=== PATIENT | male | born 1935 | race Two or more races ===

== ENCOUNTER 2019-06-03 06:20 | Inpatient (IN) ==
--- NOTE | 2019-05-08 13:33 | PAT Medication Instructions ---
Medication Instructions Date of Service May 08, 2019 Home Medications Medications amlodipine [Norvasc] 5 mg PO QAM rwpsvsuug-tqdgmhyu-tcuzvmqpoc [Stalevo 100] 1 tab PO QID enalapril maleate 20 mg PO BID finasteride 5 mg PO QAM ibuprofen [Advil] 400 mg PO Q6H PRN pramipexole [Mirapex] 0.75 mg PO QAM rasagiline [Azilect] 0.5 mg PO QAM simvastatin [Zocor] 40 mg PO Q OTHER DAY tamsulosin [Flomax] 0.4 mg PO QAM ASK your surgeon for instructions ibuprofen [Advil] 400 mg PO Q6H PRN STOP taking 2 weeks before surgery rasagiline [Azilect] 0.5 mg PO QAM (check with prescribing provider before stopping) DO NOT take the morning of surgery pramipexole [Mirapex] 0.75 mg PO QAM enalapril maleate 20 mg PO BID Take morning of surgery With a small sip of water, OTHERWISE NOTHING TO EAT OR DRINK AFTER MIDNIGHT: tamsulosin [Flomax] 0.4 mg PO QAM finasteride 5 mg PO QAM szncwsplx-yjaxkzgz-ekabhsveva [Stalevo 100] 1 tab PO QID amlodipine [Norvasc] 5 mg PO QAM Take evening before surgery simvastatin [Zocor] 40 mg PO Q OTHER DAY enalapril maleate 20 mg PO BID oboktvnly-gfccbblx-liyzlogxrk [Stalevo 100] 1 tab PO QID Other Notes If you have any questions please call us at [phone] or [phone] or [phone] or [phone]
--- NOTE | 2019-05-11 10:11 | Anesthesiology Consultation ---
Date of Service May 11, 2019 Assessment & Plan (1) Encounter for pre-operative examination: Chart Review Chart Review: Acceptable Risk for Surgery and Patient seen in Pre Admission Testing Seen by PCP 05/04/2019=" At this time he is stable from a cardiopulmonary standpoint. At this time there is no contraindication to surgery. Parkinson's disease has been stable." He is to continue present meds. He was encouraged to call his neurologist to find out instructions on Stalevo, Mirapex, and Azilect for surgery. (Med instructions were given per PAT guidelines but patient was instructed to check with neurologist before stopping meds to ensure neurologist approves of neuro related med instructions) Pt [place]- wears bilateral hearing aids- pt concerned when hearing aids are taken out for surgery - may need to speak loudly to patient Preop labs show thrombocytopenia- chronic and stable for patient. Surgeon's office was made aware. Will leave to surgeon/anesthesiologist discretion if re peat lab is needed in the AM on DOS. Teaching & Discussion Pre-Anesthesia Teaching/Discussion Notes: Instructed NPO after midnight before surgery,except medications with 15 cc of water. Medication instructions provided according to the PAT guidelines. History Surgery Operation Date: 06/03/19 10:45 Proposed Procedures p Right Total Knee Arthroplasty - Javier Alonzo MD Height/Weight Height: 5 ft 7 in Weight: 86.9 kg Allergies Allergy/AdvReac Type Severity Reaction Status Date / Time No Known Allergies Allergy Verified 05/05/19 08:34 Medications Home Medications Medication Instructions Recorded Confirmed Last Taken amlodipine [Norvasc] 5 mg PO QAM 05/05/19 05/05/19 Unknown oxjlcpclm-iyqhnrva-npnyyspicf 1 tab PO QID 05/05/19 05/05/19 Unknown [Stalevo 100] enalapril maleate 20 mg PO BID 05/05/19 05/05/19 Unknown finasteride 5 mg PO QAM 05/05/19 05/05/19 Unknown ibuprofen [Advil] 400 mg PO Q6H PRN 05/05/19 05/05/19 Unknown pramipexole [Mirapex] 0.75 mg PO QAM 05/05/19 05/05/19 Unknown rasagiline [Azilect] 0.5 mg PO QAM 05/05/19 05/05/19 Unknown simvastatin [Zocor] 40 mg PO Q OTHER DAY 05/05/19 05/05/19 Unknown tamsulosin [Flomax] 0.4 mg PO QAM 05/05/19 05/05/19 Unknown Past Medical History Medical History (Updated 05/12/19 @ 11:29 by Zhanna Sinha PA-C) BPH (benign prostatic hyperplasia) Constipation Stable - takes OCT stool softner PRN Hearing deficit [place] HTN (hypertension) Hyperlipemia Parkinson disease Stable- tremor, mild rigidity, balance issues- Follows with neurology = [facility] Thrombocytopenia CHRONIC- DOES NOT FOLLOW WITH HEME - RECORDS SHOW PLATELETS IN LOW 90S Urinary incontinence, urge Exercise / Class Metabolic Activity II 4-5 Yardwork/Stairs/Walk up hill (one flight of stairs- no chest pain or SOB ) Past Family History Family History Other No family history of adverse response to anesthesia Past Surgical History Surgical History History of appendectomy History of bursectomy RT KNEE History of colon resection to r/o CA; benign History of colonoscopy History of lumbar surgery Slow to wake up after anesthesia One episode- only occurred after colon resection- slow to wake - no ICU stay or prolonged intubation Past Anesthesia History No Hx of Anesthesia Complications (with exception to slow to wake x 1) and No Family Hx of Anesthesia Complications History of PONV No Hx of PONV and No Hx of Motion Sickness Social History Smoking Status: Never smoker Do You Dip or Chew Tobacco: No Hx Alcohol Use: Yes Alcohol type: wine alcohol intake frequency: a few times a month Hx Substance Use: No substance use type: does not use Review of Systems Patient denies chest pain, shortness of breath, dyspnea on exertion, reflux, cough, wheezing, palpitations. Mild snoring laying on back- no apnea. No hx of seizures, stroke, GA. No hx of blood clots or blood transfusions Physical Exam Vital Signs VITALS BP 126/75 P 61 TEMP 97.9 SP02 98% RESP 20 Constitutional no acute distress ENMT Mouth: no TMJ clicking Thyromental Distance: > or= 3.5 Finger Breadths (3.5) Mallampati Class: II Permanent top partial plate- front teeth Bottom molars- caps and crowns Neck neck extension not limited Respiratory normal respiratory effort; no respiratory distress Auscultation: lungs clear to auscultation bilaterally; no wheezes Cardiovascular Rate/Rhythm: regular rate and regular rhythm Vessels: no carotid bruit Musculoskeletal Spine: normal cervical ROM and no pain with cervical ROM Neurologic moves all extremities Psychiatric Orientation: alert Testing Laboratory Results 05/11/19 10:23 Blood Type A Positive 05/11/19 10:23 Antibody Screen NEGATIVE 05/11/19 10:23 05/06/19 SODIUM: 145 POTASSIUM: 4.4 CHLORIDE: 107 CO2: 28 BUN: 28 CREATININE: 1.4 GLUCOSE: 96 PT: 13.8 PTT: 30 INR: 1.06 UA: Negative Electrocardiogram Date: 05/04/19 SB with first degree AV block Chest X-Ray Date: 05/06/19 Findings: + NAD
[2019-05-11 12:30] LABS: Basophils # (auto) 0.01 K/uL (0-0.2); Basophils % (auto) 0.2 %; Eosinophils # (auto) 0.08 K/uL (0-0.5); Eosinophils % (auto) 1.3 %; Hematocrit (blood only) 42.7 % (42-52); Hemoglobin 14.1 g/dL (14.0-18.0); Immature Granulocytes # (auto) 0.01 K/uL (0.00-0.02); Immature Granulocytes % (auto) 0.2 %; Lymphocytes # (auto) 1.12 K/uL (1.2-3.4); Lymphocytes % (auto) 17.9 %; Mean Corpuscular Hemoglobin 32.6 pg (25-34); Mean Corpuscular Volume 98.6 fL (80-100); Monocytes # (auto) 0.66 K/uL (0.11-0.59); Monocytes % (auto) 10.6 %; Neutrophils # (auto) 4.37 K/uL (1.4-6.5); Neutrophils % (auto) 69.8 %; Platelet Count 89 K/uL (130-400); Platelet Estimate Decreased (Normal); RDW Coefficient of Variation 13.7 % (11.5-14.5); RDW Standard Deviation 49.1 fL (36.4-46.3); Red Blood Count 4.33 M/uL (4.7-6.1); White Blood Count 6.25 K/uL (4.8-10.8)
--- NOTE | 2019-06-01 17:42 | History and Physical Report ---
DATE OF ADMISSION: 06/03/2019 CHIEF COMPLAINT: Right knee pain. HISTORY OF PRESENT ILLNESS: This 84-year-old white male presents today for evaluation of right knee pain. He has a longstanding history of right knee pain. He notes loss of motion as well as difficulty ambulating. He does have Parkinson's, which adds to his mobility difficulties. Right knee pain is worse with ambulation. It is affecting his ADLs. No numbness or tingling. He has tried conservative care measures including activity modification and oral medications without improvement. He elects to proceed with right total knee arthroplasty in hopes of improving his function. Preoperative imaging has been obtained. PAST MEDICAL HISTORY: Significant for hypertension, Parkinson's disease, elevated cholesterol, BPH, and osteoarthritis. Also, history of gout, superficial thrombophlebitis, villous adenoma. PAST SURGICAL HISTORY: Cardiac catheterization, resection of rectosigmoid in 1992, lumbar laminectomy. ALLERGIES: NKDA. FAMILY HISTORY: Significant for hypertension, diabetes, CAD; otherwise unremarkable. SOCIAL HISTORY: The patient is retired. . No tobacco use. Occasional ETOH use. CURRENT MEDICATIONS: Azilect 1 mg p.o. daily, carbidopa/entacapone/levodopa 25 mg/200 mg/100 mg p.o. q.i.d., enalapril 20 mg p.o. b.i.d., finasteride 5 mg p.o. daily, pramipexole 0.75 mg p.o. daily, simvastatin 40 mg p.o. every other day, tamsulosin 0.4 mg p.o. daily. REVIEW OF SYSTEMS: A total of 10 systems are reviewed and are significant only for the above-stated conditions. PHYSICAL EXAMINATION: VITAL SIGNS: Temperature 36.5 oral, BP 126/78, pulse 77, O2 sat 98% on room air, height 171 cm, weight 87 kilograms, BMI 29.75. GENERAL: Well-developed, well-nourished elderly white male in no acute distress. Sitting in a chair. Alert and oriented. SKIN: Warm and dry with fair turgor. No rashes or lesions. No ecchymosis or erythema. No intraarticular effusion. HEENT: Normocephalic, atraumatic. Eyes PERRLA, EOMI. Nares patent bilaterally without turbinate enlargement. Oropharynx without erythema or exudate. No lesions noted. Uvula midline. Oral mucosa moist. Dental caps and permanent bridge are noted. HEART: RRR. No MGR. LUNGS: Clear to auscultation bilaterally. No crackles, rhonchi or wheezing. Good air movement. ABDOMEN: Bowel sounds present x4, soft, nontender. No organomegaly. No masses. MUSCULOSKELETAL: Right knee evaluation reveals no intraarticular effusion. He lacks approximately 8 degrees of terminal extension. Flexion to 70-80 degrees. Large palpable Hernandez cyst posteriorly. There is focal discomfort with palpation over the medial and lateral joint lines with medial being worse. Stable collateral ligaments. No defect in the patellar tendon or quadriceps tendon. He ambulates with an antalgic gait. He does have the tremoring and pill rolling associated with Parkinson's. NEUROLOGIC: Cranial nerves II through XII are intact. Gross sensation is intact across the lower extremities by soft touch. DATA: Radiographic imaging previously obtained shows end-stage tricompartmental osteoarthritis with periarticular osteophytes, subchondral sclerosis, and joint space narrowing. IMPRESSION: Right knee end-stage degenerative joint disease. PLAN: Postoperative prescriptions for Percocet and Coumadin will be provided at discharge from the hospital. Anticipate discharge to home with either outpatient or home health services. Preoperative lab work, EKG, chest x-ray have been ordered. Medical clearance has already been received from his neurologist at [facility] and his PCP. Prescription was provided for a raised toilet seat. He already has access to a cane and walker.
[~2019-06-03 06:20] MED LIST: CEFAZOLIN 2000MG 2,000 MG/15 ML SYR IV SCH; LR 500ML BOLUS, THEN 15ML/HR IV SCH; LR 60ML/HR IV SCH; ROPIVACAINE 0.5% HCL/PF 150 MG, BUPIVACAINE 0.5% MPF 30 ML, EPINEPHrine 0.15 MG, Ketoro... INFIL SCH; TRANEXAMIC ACID 1,000 MG **IV Pre-op IV SCH
--- NOTE | 2019-06-03 06:30 | History & Physical Bridge Note ---
Date of Service June 03, 2019 History & Physical Bridge Note I have examined the patient, reviewed the History & Physical and in the interval since the performance of the History & Physical I have noted the following changes of clinical significance:site confirmed,consent verified. no changes noted
[2019-06-03] MEDS ORDERED: BUPIVACAINE 0.5 % 5 MG/1 ML PF 10ML VIAL ONE (06:35)
[2019-06-03] MEDS ORDERED: BUPIVACAINE/EPINEPHRINE 0.25% 1:200,000 30 ML VIAL ONE (06:35)
[2019-06-03] MEDS ORDERED: PROPOFOL IV EMULSION 10 MG/ML 20 ML VIAL IV ONE ×3 (07:33→10:16)
[2019-06-03] MEDS ORDERED: fentaNYL citrate 100 MCG/2 ML VIAL ONE ×2 (07:33→09:54)
[2019-06-03] MEDS ORDERED: MIDAZOLAM HCL 1 MG/ML 2ML VIAL ONE (07:33)
[2019-06-03 08:13] LABS: Hematocrit (blood only) 37.7 % (42-52); Hemoglobin 12.6 g/dL (14.0-18.0); Mean Corpuscular Hemoglobin 32.5 pg (25-34); Mean Corpuscular Volume 97.2 fL (80-100); RDW Coefficient of Variation 13.6 % (11.5-14.5); RDW Standard Deviation 47.9 fL (36.4-46.3); Red Blood Count 3.88 M/uL (4.7-6.1); White Blood Count 4.86 K/uL (4.8-10.8)
[2019-06-03 08:18] LABS: Mean Corpuscular Hgb Conc 33.4 g/dL (32-36); Mean Platelet Volume 10.3 fL (7.4-10.4); Platelet Count 91 K/uL (130-400)
[2019-06-03] MEDS ORDERED: fentaNYL citrate 100 MCG/2 ML VIAL IV PRN (08:38)
[2019-06-03] MEDS ORDERED: HYDROmorphone INJ 2 MG/ML SYR/VIAL IV PRN (08:38)
[2019-06-03] MEDS ORDERED: ONDANSETRON INJ 2 MG/ML 2 ML VIAL IV PRN ×2 (08:38→12:32)
[2019-06-03] MEDS ORDERED: ePHEDrine sulfate 50 MG/ML AMP IV PRN (08:38)
[2019-06-03] MEDS ORDERED: ATROPINE SULFATE 0.1 MG/ML 10ML SYR IV PRN (08:38)
[2019-06-03] MEDS ORDERED: ORTHO JOINT ANESTHETIC ONE (08:43)
[2019-06-03 08:46] LABS: Eosinophils # (auto) 0.05 K/uL (0-0.5); Immature Granulocytes # (auto) 0.01 K/uL (0.00-0.02); Immature Granulocytes % (auto) 0.2 %; Lymphocytes # (auto) 0.82 K/uL (1.2-3.4); Lymphocytes % (auto) 16.9 %; Monocytes % (auto) 10.3 %; Neutrophils # (auto) 3.48 K/uL (1.4-6.5); Neutrophils % (auto) 71.6 %; Platelet Estimate Decreased (Normal); RBC Morphology Unremarkable
[2019-06-03] MEDS ORDERED: LIDOCAINE HCL 2% 2 ML VIAL/AMP(20MG/ML) INFIL ONE (10:16)
--- NOTE | 2019-06-03 10:30 | Post Operative Brief Note ---
Immediate Post Op Note v1 Date of Surgery June 03, 2019 Pre & Post Diagnosis Operation Date: 06/03/19 08:50 Pre-Op Diagnosis: Right Knee End-Stage Degenerative Joint Disease Post-Op Diagnosis: Right Knee End-Stage Degenerative Joint Disease I identified the patient and participated in the time-out.: Yes Procedure Operation Date: 06/03/19 08:50 Actual Procedures p Right Total Knee Arthroplasty(Right) - Javier Alonzo MD Surgeon Javier Alonzo MD Call Or Contact Centre Coach elina/tio Estimated Blood Loss 50 Findings Consistent with Post-Op Diagnosis
--- NOTE | 2019-06-03 10:42 | Operative Report ---
Post Operative Report Pre & Post Diagnosis Operation Date: 06/03/19 08:50 Pre-Op Diagnosis: Right Knee End-Stage Degenerative Joint Disease Post-Op Diagnosis: Right Knee End-Stage Degenerative Joint Disease I identified the patient and participated in the time-out.: Yes Procedure Operation Date: 06/03/19 08:50 Actual Procedures p Right Total Knee Arthroplasty(Right) - Javier Alonzo MD Surgeon ROBIN Alonzo MD Medical Liaison elina/tio Estimated Blood Loss 50 Findings Consistent with Post-Op Diagnosis Specimens see operative report Drains none Complications none Disposition Accompanied Patient To Recovery: Yes Disposition: Recovery Room Indications This 84-year-old white male presented to the office with complaints of intractable right knee pain. He had tried conservative care measures without improvement. He elected to proceed with surgical intervention after being educated about potential risks and outcomes. Preoperative imaging was obtained. Description of Procedure Patient was administered a spinal anesthetic and then taken to the operating room where he was given sedation. He was prepped and draped in the usual sterile fashion. Please see Dr. Alonzo's operative report for specifics of the procedure. I was present for the entire case from initial patient positioning wound closure. Assistance was provided in tissue retraction, hemostasis, trial implant placement, final implant placement, and final wound closure. Patient was taken to the recovery room in satisfactory condition. I attest to the content of the Intraoperative Record and any orders documented therein. Any exceptions are noted below.
--- NOTE | 2019-06-03 10:58 | Operative Report ---
DATE OF OPERATION: 06/03/2019 SURGEON: Javier Alonzo MD ELECTRONICS TEST ENGINEER: Deacon. SECOND ELECTRONICS TEST ENGINEER: Jerrod Price PA-C PREOPERATIVE DIAGNOSIS: Osteoarthritis with varus flexion deformity, right knee. POSTOPERATIVE DIAGNOSIS: Osteoarthritis with varus flexion deformity, right knee. OPERATION PERFORMED: Cemented right total knee replacement. PERIOPERATIVE SITUATION: Medically cleared male with intractable knee pain, has Parkinson's disease, has significant stiffness and pain in his knee, has difficulty getting out of the chair because he cannot push off because of pain in his right knee. Wants to proceed with surgical treatment. He is cleared medically. SUMMARY OF IMPLANTS: Size 4 neutral right femur, size 4 mobile bearing tray, size 41 patella, size 4 x 10 posterior cruciate substituting poly insert. Two bags of Palacos G cement. ESTIMATED BLOOD LOSS: 50 mL. CRYSTALLOID: Per anesthesia. PATHOLOGY: Pending. DVT prophylaxis per protocol. DESCRIPTION OF PROCEDURE: The patient appropriately identified, site verified, consent verified. Antibiotics confirmed as being given. The right lower extremity was prepped and draped in usual routine fashion. Tourniquet inflated to 300 mmHg after exsanguination of limb with a rubber Esmarch bandage for a total of 48 minutes. Midline exposure utilized the old incision from the prepatellar bursectomy utilized as well. Parapatellar arthrotomy performed. Synovectomy completed, osteophytes resected. Distal femur entered. Cruciates resected. It should be mentioned that his knee range of motion preoperatively prior to surgery was -10 to 80. The incision was then made. Parapatellar arthrotomy performed. Synovectomy completed. Osteophytes resected. Distal femur then released with cruciates and the tibia subluxated, menisci resected. The distal femur then resected 14 mm, proximal tibia resected 4 mm, extension gap was excellent. Femur sized between a 5 and a 4 measured 5 cut 4, no notching. Flexion gap checked. It was excellent. Box cut made and size 4 narrow fit well. The tibia was then broached and reamed to a size 4 rotating platform with a 10 mm spacer. Everything fit well. The patella tracked well. The patella was resected and then resected one more time to get a 16-17 mm. Seating holes made and the patella button tracked well. There was a slight medial avulsion, but the majority of the tendon was intact, but to be safe, an additional stitch was placed to drill holes distally at the end of the case. The patella was everted. The Orthomix all injected into the knee. The wound irrigated. All trial implants were removed and then permanent implants cemented with tibia, femur and patella in that order. After 12 minutes, the tourniquet deflated. Minor bleeding points controlled with electrocautery. After 14 minutes, the wound was then inspected. There was no major cement removal required. Wound was irrigated. The permanent liner seated. The knee reduced and the knee closed at 40 degrees of flexion with #2 Vicryl, 2-0 Vicryl and stainless steel clips. Appropriate dressing was applied. The patient transferred to recovery room in satisfactory condition having tolerated the procedure well. Pathology pending on bone. DVT prophylaxis per protocol. EBL 50 mL. Summary of implants as noted above. I attest to the content of the Intraoperative Record and any orders documented therein. Any exception s are noted below.
--- NOTE | 2019-06-03 10:58 | Operative Report ---
Post Operative Report Pre & Post Diagnosis Operation Date: 06/03/19 08:50 Pre-Op Diagnosis: Right Knee End-Stage Degenerative Joint Disease Post-Op Diagnosis: Right Knee End-Stage Degenerative Joint Disease I identified the patient and participated in the time-out.: Yes Procedure Operation Date: 06/03/19 08:50 Actual Procedures p Right Total Knee Arthroplasty(Right) - Javier Alonzo MD Surgeon Javier Alonzo MD Drill Doctor elina/tio Estimated Blood Loss 50 Findings Consistent with Post-Op Diagnosis Specimens As per procedure notes Complications none Disposition Accompanied Patient To Recovery: Yes Disposition: Recovery Room Description of Procedure Supine, standard prep and drape, time out, tourniquet Right Total Knee Arthroplasty Please see Dr Alonzo's procedure notes for specific details I was present throughout the case, assisted for wound closure and transferred the patient to PACU in stable condition I attest to the content of the Intraoperative Record and any orders documented therein. Any exceptions are noted below.
--- NOTE | 2019-06-03 11:00 | XRay Report ---
RIGHT KNEE 2 VIEWS History: Right total knee arthroplasty. Degenerative arthritis. Postop. FINDINGS: The patient is status post a right total knee arthroplasty. The hardware is intact. No frac ture or dislocation. Skin antonio are in place. IMPRESSION: Right total knee arthroplasty. No evidence for hardware complication. ACT 112: Negative or not required by law. Electronically signed by: Terry Baltazar M.D. 06/03/2019 10:58 AM
--- NOTE | 2019-06-03 11:40 | Anesthesiology Progress Note ---
Date of Service June 03, 2019 Anesthesia Post Procedure Vital Signs Vital Signs: Temp Pulse Pulse Resp BP BP Pulse Ox 06/03/19 11:32 36.8 C 68 18 126/76 96 06/03/19 11:20 73 19 128/83 100 06/03/19 11:10 71 19 118/58 L 100 06/03/19 11:00 73 15 121/67 100 06/03/19 10:50 68 14 113/63 100 06/03/19 10:40 37 C 73 20 111/53 L 95 06/03/19 07:01 36.7 C 75 20 141/79 H 95 Transfer of Care Handoff Completed per policy Notes Mental Status: alert / awake / arousable and participated in evaluation Patient Amnestic to Procedure: Yes Nausea / Vomiting: adequately controlled Pain: adequately controlled Airway Patency, RR, SpO2: stable & adequate BP & HR: stable & adequate Hydration State: stable & adequate Anesthetic Complications: no major complications apparent and Pt Satisfied with anesthetic care
[2019-06-03] MEDS ORDERED: DiphenhydrAMINE HCL 50 MG/ML VIAL IV PRN (12:32)
[2019-06-03] MEDS ORDERED: METOCLOPRAMIDE HCL INJ 5 MG/ML 2 ML VIAL IV PRN (12:32)
[2019-06-03] MEDS ORDERED: SODIUM CHLORIDE 0.9% 1000ML 1,000 ML IV SCH (12:32)
[2019-06-03] MEDS ORDERED: bisacodyL 10 MG SUPP PR PRN (12:32)
[2019-06-03] MEDS ORDERED: OXYCODONE HCL IR 5 MG TAB (IMMEDIATE RELEASE) PO PRN (12:32)
[2019-06-03] MEDS ORDERED: MAGNESIUM HYDROXIDE SUSP 30 ML UDC PO PRN (12:32)
[2019-06-03] MEDS ORDERED: NALOXONE HCL 0.4 MG/1 ML VIAL/CARP IV PRN (12:32)
[2019-06-03] MEDS ORDERED: ALUMINUM/MAGNESIUM SUSP 30 ML UDC PO PRN (12:32)
[2019-06-03] MEDS ORDERED: HYDROmorphone INJ 0.5 MG/0.5 ML SYR IV PRN (12:32)
[2019-06-03] MEDS ORDERED: SIMVASTATIN 40 MG TAB PO SCH (13:00)
[2019-06-03] MEDS: CARBIDOPA/LEVODOPA 25/100MG TAB PO SCH ×3 (13:51→20:41)
[2019-06-03] MEDS: ENTACAPONE 200 MG TAB PO SCH ×3 (13:52→20:41)
[2019-06-03] MEDS ORDERED: ORTHO WARFARIN NOMOGRAM SCH (14:00)
--- NOTE | 2019-06-03 14:11 | Discharge Summary ---
CHIEF COMPLAINT: Right knee pain. HISTORY OF PRESENT ILLNESS: An 84-year-old male elected for elective right total knee replacement. Today, his hospital course has been uneventful. His postop x-rays look excellent. He is eating and drinking. Denies any chest pain, shortness of breath, fever, chills, nausea, vomiting or headache. PAST MEDICAL HISTORY: Remarkable for hypertension, Parkinson's disease, hypercholesterolemia, BPH, osteoarthritis, gout, superficial thrombophlebitis and villous adenoma. PAST SURGICAL HISTORY: Remarkable for cardiac catheterization, resection of rectosigmoid lesion and lumbar laminectomy. ALLERGIES: None. FAMILY HISTORY: Remarkable for hypertension, diabetes, coronary artery disease. Parents lived into their 80s. SOCIAL HISTORY: Reveals that he is retired, . No tobacco or alcohol use. PREADMISSION MEDICATIONS: Include Azilect, jxcdicmvi-shemevvcif-ugpmlgup, enalapril, finasteride, pramipexole, simvastatin and tamsulosin. He will continue all of his home medications. Add p.r.n. Percocet and Coumadin to keep INR 1.8-2.2. REVIEW OF SYSTEMS: Noncontributory. ASSESSMENT Hospital course has been uneventful. At this point in time, postop x-rays look excellent. He will be discharged home tomorrow if he does well overnight. Home services to be arranged. Knee immobilizer to help protect his balance due to his Parkinson's when he is up gait.
--- NOTE | 2019-06-03 14:11 | Progress Note ---
DATE: 06/03/2019 SUBJECTIVE: Postop check status post right knee replacement. The patient is doing well, has no major issues. He is eating his lunch fine. His neurovascular check is improving femoral and sciatic nerve function. His wound dressing clean, dry and intact. Postop x-rays look excellent. REVIEW OF SYSTEMS: Reveals he does not have any history of chest pain, shortness of breath, fever, chills, nausea, vomiting or headache presently. ASSESSMENT: Doing well status post right knee replacement. Postop x-rays look good. Continue with postop care pathway. If does well overnight, discharge tomorrow. Continue Parkinson's medications.
[2019-06-03] MEDS: KETOROLAC TROMETHAMINE 15 MG/ML VIAL IV SCH ×3 (14:20→23:26)
[2019-06-03] MEDS: ACETAMINOPHEN 500 MG TAB PO SCH ×2 (14:20→20:45)
[2019-06-03] MEDS ORDERED: WARFARIN SOD 5 MG TAB PO ONE (16:00)
[2019-06-03] MEDS ORDERED: TRANEXAMIC ACID / 0.7% NACL 1,000 MG/100 ML BAG IV SCH (17:00)
[2019-06-03] MEDS: FERROUS GLUCONATE 324 MG TAB PO SCH (18:29)
[2019-06-03] MEDS: ASCORBIC ACID 500 MG TAB PO SCH (18:29)
[2019-06-03] MEDS: CEFAZOLIN 2000MG 2,000 MG/15 ML SYR IV SCH ×2 (18:30→23:26)
[2019-06-03] MEDS: ENALAPRIL MALEATE 10 MG TAB PO SCH (20:41)
[2019-06-03] MEDS: DOCUSATE SODIUM 100 MG CAP PO SCH (20:41)
[2019-06-03] MEDS ORDERED: SENNA 8.6 MG TAB PO SCH (21:00)
[2019-06-03] MEDS ORDERED: TAMSULOSIN HCL 0.4 MG CAP PO SCH (21:00)
[2019-06-04] MEDS: KETOROLAC TROMETHAMINE 15 MG/ML VIAL IV SCH (04:52)
[2019-06-04] MEDS: ACETAMINOPHEN 500 MG TAB PO SCH (04:52)
[2019-06-04 06:21] LABS: Hematocrit (blood only) 34.3 % (42-52); Hemoglobin 11.8 g/dL (14.0-18.0); Mean Corpuscular Hemoglobin 33.1 pg (25-34); Mean Corpuscular Hgb Conc 34.4 g/dL (32-36); Mean Corpuscular Volume 96.1 fL (80-100); Mean Platelet Volume 11.5 fL (7.4-10.4); Platelet Count 101 K/uL (130-400); RDW Coefficient of Variation 13.6 % (11.5-14.5); RDW Standard Deviation 47.9 fL (36.4-46.3); Red Blood Count 3.57 M/uL (4.7-6.1); White Blood Count 9.18 K/uL (4.8-10.8)
[2019-06-04 06:32] LABS: INR 1.3 (0.9-1.1)
--- NOTE | 2019-06-04 06:55 | Progress Note ---
DATE: 06/03/2019 SUBJECTIVE: Postop day #1 status post right total knee replacement. The patient is doing well. Denies any chest pain, shortness of breath, fever, chills, nausea, vomiting or headache. OBJECTIVE: VITAL SIGNS: Stable. He is afebrile. LABORATORY WORK: Hematocrit stable in the 30s. INR is 1.3. He always runs a low platelet count. His platelets are 101,000. Wound dressing clean, dry and intact. Neurovascular check femoral sciatic nerve is normal. ASSESSMENT: Overall, doing well, is voiding in small amounts. At this point in time, long as he is voiding, we will discharge him today. Can be discharged on 2 mg Coumadin as his INR is already 1.3 and he runs a low platelet count. Follow up in 2 weeks for staple removal. Check INR on Saturday or Saturday.
[2019-06-04 07:09] LABS: BUN Creatinine Ratio 19.3 (10-20); Calcium 8.7 mg/dl (8.5-10.1); Creatinine Clr Calc Pharmacy 42.3 ml/min; Est GFR (African American) 54.5; Potassium 4.3 mmol/L (3.5-5.1)
[2019-06-04] MEDS ORDERED: dexAMETHasone 10 MG in SYRINGE 0 ML IV SCH (08:00)
--- NOTE | 2019-06-04 08:07 | Anesthesiology Progress Note ---
Date of Service June 04, 2019 Anesthesia Post Procedure Vital Signs Vital Signs: Temp Pulse Pulse Resp BP Pulse Ox 06/04/19 03:45 36.3 C L 61 22 130/77 94 06/03/19 23:49 36.3 C L 67 20 124/75 94 06/03/19 19:35 36.4 C L 71 20 153/79 H 95 06/03/19 15:15 36.4 C L 68 18 138/74 93 06/03/19 13:30 36.4 C L 75 18 134/76 98 06/03/19 12:47 36.5 C 71 16 137/68 96 06/03/19 12:20 36.5 C 71 16 133/71 98 06/03/19 12:05 69 19 126/71 95 06/03/19 11:50 66 16 119/73 95 06/03/19 11:40 66 16 131/70 97 06/03/19 11:32 36.8 C 68 18 126/76 96 06/03/19 11:20 73 19 128/83 100 06/03/19 11:10 71 19 118/58 L 100 06/03/19 11:00 73 15 121/67 100 06/03/19 10:50 68 14 113/63 100 06/03/19 10:40 37 C 73 20 111/53 L 95 Notes Mental Status: alert / awake / arousable Patient Amnestic to Procedure: Yes Nausea / Vomiting: adequately controlled Pain: adequately controlled Airway Patency, RR, SpO2: stable & adequate BP & HR: stable & adequate Hydration State: stable & adequate Neuraxial Anesthesia: was administered and sensory block resolved Anesthetic Complications: no major complications apparent and Pt Satisfied with anesthetic care
[2019-06-04] MEDS: FERROUS GLUCONATE 324 MG TAB PO SCH (08:25)
[2019-06-04] MEDS: DOCUSATE SODIUM 100 MG CAP PO SCH (08:25)
[2019-06-04] MEDS: ASCORBIC ACID 500 MG TAB PO SCH (08:25)
[2019-06-04] MEDS: ENTACAPONE 200 MG TAB PO SCH (08:26)
[2019-06-04] MEDS: CARBIDOPA/LEVODOPA 25/100MG TAB PO SCH (08:28)
[2019-06-04] MEDS: ENALAPRIL MALEATE 10 MG TAB PO SCH (08:28)
--- NOTE | 2019-06-04 08:56 | Orthopedic Progress Note ---
Date of Service June 04, 2019 Assessment & Plan (1) Status post total right knee replacement using cement: Dressings were changed this morning by me. Continue IZAIAH hose for 6 weeks. Coumadin today per nomogram. PT/OT this morning. Anticipate discharge to home with home health services after PT/OT today. Prescriptions were sent to his local pharmacy, as he will be staying with his daughter and son-in-law for a few days. Continue icing the knee frequently. Use the knee immobilizer when standing or walking, for the next 2 weeks. It may be removed when sitting or laying down. Continue use of his walker when standing/ambulating Follow-up in the office in 2 weeks for staple removal as scheduled Admission and Anticipated Discharge Date Admission Date: June 03, 2019 Subjective Patient is seen in his room this morning. He has no complaints. He states he did well overnight. No nausea, vomiting, chest pain, shortness of breath, or abdominal pain. He states his knee feels pretty good. He feels ready for discharge. Review of Systems Review of Systems: Unchanged from preop yesterday Physical Exam Physical Exam: General: Well-developed, well-nourished, elderly white male, in no acute distress. Sitting on his bed. Alert and oriented. Talkative. Skin: Warm and dry with good turgor. No rashes or lesions. Right knee has a postop dressing in place with out any bleeding or drainage visible. Musculoskeletal: Right leg has his postop dressing in place. Upon removal, there is no drainage on his bandages. He has no active bleeding from the surgical site. [place] are intact. Wound edges are well approximated. Expected postoperative edema proximally. No ecchymosis. Nearly full extension. He is able to perform a straight leg raise. Intact motor function to the ankle and toes. Neurologic: Gross sensation is intact across the right leg by soft touch. Peripheral pulses are 2+. Results & Data ([facility]) Vital Signs (Past 12 Hours) Vital Signs Temp Pulse Resp BP Pulse Ox 06/04/19 08:29 36.7 C 68 18 94 06/04/19 08:24 65 144/77 H 06/04/19 03:45 36.3 C L 61 22 130/77 94 06/03/19 23:49 36.3 C L 67 20 124/75 94 Laboratory Results INR today is 1.3. H&H this morning are 11.8 and 34.3. WBCs are 9.18
[2019-06-04] MEDS ORDERED: AMLODIPINE BESYLATE 5 MG TAB PO SCH (09:00)
[2019-06-04] MEDS ORDERED: MULTIVITAMIN TAB PO SCH (09:00)
[2019-06-04] MEDS ORDERED: PRAMIPEXOLE DIHYDROCHLO 0.5 MG TAB PO SCH (09:00)
[2019-06-04] MEDS ORDERED: FINASTERIDE 5 MG TAB PO SCH (09:00)
[2019-06-04] MEDS ORDERED: SENNA LAXATIVE PO SCH (09:00)
[2019-06-04] MEDS ORDERED: WARFARIN SOD 3 MG TAB PO ONE (11:00)
== END 2019-06-04 12:12 | disposition home health service (06) | DRG 470 ==
LOC: ASU 06:20 → 3E 10:48

== ENCOUNTER 2021-10-13 15:16 | Inpatient (IN) ==
[2021-10-13] MEDS ORDERED: SODIUM CHLORIDE 0.9% 1000ML 500 ML IV ONE (15:55)
--- NOTE | 2021-10-13 16:15 | Emergency Department Note ---
History of Present Illness General Chief complaint: Fall Stated complaint: FELL Time Seen by Provider: 10/13/21 15:43 Source: patient and family (Daughter at bedside) History of Present Illness Provider complaint: Fall Onset (ago): day(s) 1 Location: buttocks Radiation: back Severity: moderate Maximum Pain Intensity: 5 Quality: + aching and + dull Relieved By: + none Exacerbated By: + none Associated symptoms: no chest pain, no fever/chills, no headaches, no nausea/vomiting or no shortness of breath 86-year-old male presents emergency department with his daughter for fall. Patient has a history of parkinsonism. Per the daughter the patient fell at 2 AM while he got up and try to use restroom. The patient lost balance and fell on his side. Patient is currently reporting no headache. Patient states he does not think he hit his head. Patient is not on blood thinners. Patient is currently reporting pain in his lower back and buttocks area as that is where he fell. The daughter reports that the patient was able to bear weight last night. No fevers. No nausea or vomiting. No melena hematochezia no hematuria. The daughter at bedside reports that the patient recently had his Parkinson's medications changed by his neurologist at [place]. She reports he removed pramipexole and was put on amantadine 100 mg as well as having his carbidopa levodopa dosage increased. She states since that time he has been having more neurological problems including worsening night terrors. Home Medications Medication Instructions Recorded Confirmed Type amlodipine 5 mg tablet (Norvasc) 5 mg PO QAM 05/05/19 10/13/21 History enalapril maleate 20 mg tablet 20 mg PO BID 05/05/19 10/13/21 History finasteride 5 mg tablet 5 mg PO QAM 05/05/19 10/13/21 History simvastatin 40 mg tablet (Zocor) 20 mg PO Q OTHER DAY 05/05/19 10/13/21 History tamsulosin 0.4 mg capsule (Flomax) 0.4 mg PO PM 05/05/19 10/13/21 History amantadine HCl 100 mg tablet 100 mg PO TID 10/13/21 10/13/21 History carbidopa 25 mg-levodopa 100 mg 2 tab PO QID 10/13/21 10/13/21 History tablet entacapone 200 mg tablet (Comtan) 200 mg PO QID 10/13/21 10/13/21 History rasagiline 1 mg tablet (Azilect) 1 mg PO DAILY 10/13/21 10/13/21 History Allergies Allergy/AdvReac Type Severity Reaction Status Date / Time No Known Allergies Allergy Verified 10/13/21 19:29 Past Med/Surg History Medical History (Updated 10/13/21 @ 20:13 by Prateek Kaiser MD) BPH (benign prostatic hyperplasia) Constipation Stable - takes OCT stool softner PRN Hearing deficit [place] HTN (hypertension) Hyperlipemia Parkinson disease Stable- tremor, mild rigidity, balance issues- Follows with neurology = [facility] Thrombocytopenia CHRONIC- DOES NOT FOLLOW WITH HEME - RECORDS SHOW PLATELETS IN LOW 90S Urinary incontinence, urge Surgical History History of appendectomy History of bursectomy RT KNEE History of colon resection to r/o CA; benign History of colonoscopy History of lumbar surgery Slow to wake up after anesthesia One episode- only occurred after colon resection- slow to wake - no ICU stay or prolonged intubation Family History Other No family history of adverse response to anesthesia Social History Smoking Status: Never smoker Second Hand Exposure: No; Hx Alcohol Use: Yes Alcohol type: wine Hx Substance Use: No Preferred Language: Palauan Communication Ability: Effective Wedger And Gluer Required: No Beliefs That Will Affect Care: None marital status: Current Living Situation: Spouse Feels Safe at Home: Yes Assistive Devices: Brace/Splint/Immobilizer and Walker Review of Systems A total of 10 systems reviewed and were otherwise negative Physical Exam Vital Signs Vital Signs - 24 hr 10/13/21 15:18 10/13/21 16:00 10/13/21 18:00 Temperature 36.6 C Temperature Source Temporal Artery Scan Pulse Rate 66 Pulse Rate [Apical] 86 65 Pulse Rhythm [Apical] Regular Respiratory Rate 18 16 16 Respiratory Effort / Characteristics Non-Labored Non-Labored Non-Labored Respiratory Depth Normal Normal Normal Blood Pressure 143/74 H Blood Pressure [Right Arm] 155/86 H 133/79 Blood Pressure Mean 97 Blood Pressure Mean [Right Arm] 109 97 Pulse Oximetry 96 99 99 Oxygen Delivery Method Room Air Room Air Room Air Sepsis Recent Fever Within 48 Hours No Sepsis New/Unexplained Change in Mental Status No Sepsis Action Taken by Nursing No Action Required 10/13/21 20:00 Temperature Temperature Source Pulse Rate Pulse Rate [Apical] 68 Pulse Rhythm [Apical] Regular Respiratory Rate 16 Respiratory Effort / Characteristics Non-Labored Respiratory Depth Normal Blood Pressure Blood Pressure [Right Arm] 133/79 Blood Pressure Mean Blood Pressure Mean [Right Arm] 97 Pulse Oximetry 99 Oxygen Delivery Method Room Air Sepsis Recent Fever Within 48 Hours Sepsis New/Unexplained Change in Mental Status Sepsis Action Taken by Nursing Physical Exam HENT: Exam performed. - Head: Normocephalic and atraumatic. - Right Ear: External ear normal. No mastoid tenderness. - Left Ear: External ear normal. No mastoid tenderness. - Mouth/Throat: The oropharynx is clear and moist. No trismus in the jaw. No dental abscesses or uvula swelling. No oropharyngeal exudate or tonsillar abscesses. EYES: Conjunctivae and EOM are normal. Pupils are equal, round, and reactive to light. Right eye exhibits no discharge. Left eye exhibits no discharge. No scleral icterus. NECK: Normal range of motion. Neck supple. No JVD present. No spinous process tenderness present. No carotid bruit present. No rigidity. No tracheal deviation and normal range of motion present. No Brudzinski's sign and no Kernig's sign noted. CV: Normal rate, regular rhythm, normal heart sounds and intact distal pulses. There is no peripheral edema. Palpable radial pulses bue. PULM/CHEST: Effort normal and breath sounds normal. No respiratory distress. No stridor. He has no wheezes. He has no rales. - Chest Wall: He exhibits no tenderness. ABD: The abdomen is soft. Bowel sounds are normal. He has no distension. No mass is present. There is no tenderness. There is no rebound, no guarding, no Escobedo's sign and no tenderness at McBurney's point. Rovsig negative. MUSC/SKEL: Pelvis stable. No C, T, or L-spine tenderness. Normal range of motion. There is no peripheral edema, tenderness or deformity. LYMPH: No cervical adenopathy. NEURO: He is alert and oriented to person, place, and time. GCS eye subscore is 4. GCS verbal subscore is 5. GCS motor subscore is 6. Sensory deficits. Cranial nerves II through XII intact. SKIN: Abrasions over the right upper extremity. Course Course 1534: The patient was evaluated in room B10. A complete history and physical exam was performed Cardiac monitoring: An order was placed for continuous cardiac monitoring. The monitor shows a rate of 70 with sinus rhythm 1800: Vital signs stable. Labs and imaging within normal limits. Patient be admitted to the [facility] [place] [facility] for recurrent falls. Administered Medications Sodium Chloride (Nss) 500 mls @ 125 mls/hr IV .Q4H SHAREE Stop: 11/12/21 15:59 Last Admin: 10/13/21 17:33 Dose: 125 mls/hr Documented by: [id number] Discontinued Medications Carbidopa/Levodopa (Carbidopa/Levodopa 25/100mg Tab) 2 tab PO ONE STA Stop: 10/13/21 19:05 Last Admin: 10/13/21 20:01 Dose: 2 tab Documented by: [id number] Sodium Chloride (Nss 1000ml) 500 mls @ 999 mls/hr IV .Q31M ONE Stop: 10/13/21 16:25 Last Infusion: 10/13/21 17:44 Dose: 0 mls/hr Documented by: [id number] Admin: 10/13/21 16:08 Dose: 999 mls/hr Documented by: [id number] Medical Decision Making Laboratory Data Result diagrams: 10/13/21 16:10 10/13/21 16:10 Lab Results 10/13/21 10/13/21 10/13/21 Range/Units 16:10 16:10 17:20 WBC 6.07 (4.8-10.8) K/ul RBC 4.14 L (4.63-6.08) M/uL Hgb 13.3 L (14.0-18.0) g/dl POC Hgb (14.0-18.0) g/dl Hct 40.0 L (40.1-51.0) % POC Hct (42-52) % MCV 96.6 (80.0-100.0) fL MCH 32.1 (25.0-34.0) pg MCHC 33.3 (32.0-36.0) g/dL RDW Std Deviation 47.7 H (36.4-46.3) fL RDW Coeff of [place] 13.3 (11.5-14.5) % Plt Count 80 L (130-400) K/uL MPV 11.3 (9.4-12.4) fL Immature Gran % (Auto) 0.2 % Neut % (Auto) 76.4 % Lymph % (Auto) 11.5 % Sebastian % (Auto) 10.4 % Eos % (Auto) 1.3 % Baso % (Auto) 0.2 % Neut # (Auto) 4.64 (1.4-6.5) K/uL Lymph # (Auto) 0.70 L (1.2-3.4) K/uL Sebastian # (Auto) 0.63 (0.24-0.82) K/uL Eos # (Auto) 0.08 (0-0.50) K/uL Baso # (Auto) 0.01 (0-0.2) K/uL Immature Gran # (Auto) 0.01 (0.00-0.02) K/uL Toxic Vacuolation 1+ Platelet Estimate Decreased L (Normal) POC Sodium (135-144) mmol/L Sodium 140 (136-145) mmol/L POC Potassium (3.3-5.0) mmol/L Potassium TNP POC Chloride (101-112) mmol/L Chloride 112 H (98-107) mmol/L Carbon Dioxide 25 (21-32) mmol/L POC Total CO2 (24-31) mmol/L Anion Gap 3 (3-11) POC Anion Gap (16-25) mmol/L POC BUN (7-18) mg/dl BUN 33 H (6-23) mg/dl Creatinine 1.41 H (0.6-1.4) mg/dl POC Creatinine (0.6-1.3) mg/dl Est Cr Clr Drug Dosing Not Reportable Est GFR ( Amer) 51.9 ml/min Est GFR (Non-Af Amer) 44.8 ml/min BUN/Creatinine Ratio 23.4 H (10-20) Glucose 112 H (70-99(Fasting)) mg/dl POC Glucose (other) (70-99) mg/dl Calcium 8.8 (8.5-10.1) mg/dl POC Ioniz Calcium Angel (1.12-1.32) mmol/l Urine Color Urine Appearance (Clear) Urine pH (4.5-7.5) Ur Specific [place] (1.000-1.030) Urine Protein (Negative) Urine Glucose (UA) (Negative) Urine Ketones (Negative) Urine Blood (Negative) Urine Nitrite (Negative) Urine Bilirubin (Negative) Urine Urobilinogen (Negative) Ur Leukocyte Esterase (Negative) SARS-CoV-2, RNA, NAAT NEGATIVE (NEGATIVE) 10/13/21 10/13/21 Range/Units 17:25 17:56 WBC (4.8-10.8) K/ul RBC (4.63-6.08) M/uL Hgb (14.0-18.0) g/dl POC Hgb 13.3 L (14.0-18.0) g/dl Hct (40.1-51.0) % POC Hct 39 L (42-52) % MCV (80.0-100.0) fL MCH (25.0-34.0) pg MCHC (32.0-36.0) g/dL RDW Std Deviation (36.4-46.3) fL RDW Coeff of [place] (11.5-14.5) % Plt Count (130-400) K/uL MPV (9.4-12.4) fL Immature Gran % (Auto) % Neut % (Auto) % Lymph % (Auto) % Sebastian % (Auto) % Eos % (Auto) % Baso % (Auto) % Neut # (Auto) (1.4-6.5) K/uL Lymph # (Auto) (1.2-3.4) K/uL Sebastian # (Auto) (0.24-0.82) K/uL Eos # (Auto) (0-0.50) K/uL Baso # (Auto) (0-0.2) K/uL Immature Gran # (Auto) (0.00-0.02) K/uL Toxic Vacuolation Platelet Estimate (Normal) POC Sodium 145 H (135-144) mmol/L Sodium (136-145) mmol/L POC Potassium 4.3 (3.3-5.0) mmol/L Potassium POC Chloride 109 (101-112) mmol/L Chloride (98-107) mmol/L Carbon Dioxide (21-32) mmol/L POC Total CO2 23 L (24-31) mmol/L Anion Gap (3-11) POC Anion Gap 19.0 (16-25) mmol/L POC BUN 29 H (7-18) mg/dl BUN (6-23) mg/dl Creatinine (0.6-1.4) mg/dl POC Creatinine 1.3 (0.6-1.3) mg/dl Est Cr Clr Drug Dosing Est GFR ( Amer) ml/min Est GFR (Non-Af Amer) ml/min BUN/Creatinine Ratio (10-20) Glucose (70-99(Fasting)) mg/dl POC Glucose (other) 100 H (70-99) mg/dl Calcium (8.5-10.1) mg/dl POC Ioniz Calcium Angel 1.11 L (1.12-1.32) mmol/l Urine Color Dark Yellow Urine Appearance Clear (Clear) Urine pH 5.5 (4.5-7.5) Ur Specific [place] 1.017 (1.000-1.030) Urine Protein Negative (Negative) Urine Glucose (UA) Negative (Negative) Urine Ketones Negative (Negative) Urine Blood Negative (Negative) Urine Nitrite Negative (Negative) Urine Bilirubin Negative (Negative) Urine Urobilinogen Negative (Negative) Ur Leukocyte Esterase Negative (Negative) SARS-CoV-2, RNA, NAAT (NEGATIVE) Imaging Data Radiologist's Impression: Cervical Spine CT 10/13/21 15:[address] DOSE: HISTORY: fall TECHNIQUE: Multiaxial CT images of the cervical spine were performed and reformatted in the sagittal and coronal plane without the use of contrast. A dose lowering technique was utilized adhering to the principles of ALARA. COMPARISON: None. FINDINGS: No fractures. The C3-C4 vertebral bodies and facets are fused. [id number] degenerative disc disease throughout the cervical spine. There is 2 mm of anterolisthesis of C4 on C5. This is likely due to long-standing degenerative change. Prevertebral soft tissues and the C1-C2 interval are i ntact. No pneumothorax. IMPRESSION: No fractures within the cervical spine. ACT 112: Negative or not required by law. Electronically signed by: Terry Baltazar M.D. 10/13/2021 4:35 PM Chest X-Ray 10/13/21 15:55 SINGLE VIEW CHEST CLINICAL HISTORY: Fall. FINDINGS: An AP, portable, upright chest radiograph is obtained. No prior studies are available for comparison at the time of dictation. The heart is mildly enlarged. The pulmonary vasculature is noncongested. The lungs and pleural spaces are clear. No pneumothorax is seen. The skeletal structures are osteopenic. The bony thorax is grossly intact. IMPRESSION: Mild cardiomegaly with no active disease in the chest. ACT 112: Negative or not required by law. Electronically signed by: Shorty Osman M.D. 10/13/2021 5:[address] 10/13/21 15:[address] DOSE: 1090.89 mGy.cm HISTORY: fall TECHNIQUE: Multiaxial CT images of the head were performed without the use of intravenous contrast. Automated exposure control was utilized for this study. A dose lowering technique was utilized adhering to the principles of ALARA. Comparison: None. Findings: The paranasal sinuses and mastoid air cells are clear. The calvarium and skull base are intact. There is no mass, hematoma, midline shift, acute infarct. White matter hypodensity is nonspecific but suggestive of microvascular ischemic change. The ventricles and sulci demonstrate mild age-related inv olutional changes. Impression: No acute intracranial abnormality. ACT 112: Negative or not required by law. Electronically signed by: Terry Baltazar M.D. 10/13/2021 4:31 PM Lumbar Spine X-Ray 10/13/21 15:55 LUMBAR SPINE 5 VIEWS CLINICAL HISTORY: Fall. Low back pain. FINDINGS: 5 views of the lumbar spine are obtained. No prior studies are availa ble for comparison at the time of dictation. The skeletal structures are osteopenic. There is no radiographic evidence of fracture or malalignment. Vertebral body height and alignment are maintained. There is straightening of the lumbar lordosis. Anterior and lateral marginal osteophytes are seen th roughout. The transverse and spinous processes are intact. There is no evidence of spondylolysis. There is advanced disc space narrowing at L5-S1 and moderate disc space narrowing at L4-L5. Milder disc space narrowing is seen at the remaining lumbar levels. Facet arthropathy is present in the lower lumbar region. The visualized bony pelvis appears intact. Advanced arthritic change is seen in the hips, left greater than right. Degenerative sclerosis is noted in the sacroiliac joints. There is a nonobstructed abdominal bowel gas pattern. Moderate fecal retention is noted throughout the colon. There is advanced atherosclerotic calcification of the abdominal aorta. Suture material and surgical clips project over the pelvis. IMPRESSION: 1. No acute bony abnormality is seen involving the lumbar spine. 2. Osteopenia and spondylotic change as above. ACT 112: Negative or not required by law. Electronically signed by: Shorty Osman M.D. 10/13/2021 5:34 PM Pelvis X-Ray 10/13/21 15:55 SINGLE VIEW PELVIS; 3 VIEWS SACRUM AND COCCYX CLINICAL HISTORY: Fall. Pelvic and tailbone pain. FINDINGS: An AP view of the pelvis with 3 additional views of the sacrum and coccyx are obtained. No prior studies are available for comparison at the time of dictation. The skeletal structures are osteopenic. There is no radiographic evidence of acute fracture involving the hips or bony pelvis. There is no radi ographic evidence of sacrococcygeal fracture. Advanced lumbosacral spondylosis is partially visualized. Advanced arthritic change and joint space narrowing is seen in both hips, left greater than right. Sclerotic change is noted in the sacroiliac joints. Surgical clips and suture material project over the pelvis. There is no bowel obstruction. The overlying soft tissues are normal as imaged. IMPRESSION: 1. There is no radiographic evidence of acute fracture involving the hips or bony pelvis. 2. There is no radiographic evidence of sacrococcygeal fracture. 3. Osteopenia and degenerative change as above. Electronically signed by: Shorty Osman M.D. 10/13/2021 5:26 PM Sacrum and Coccyx X-Ray 10/13/21 15:55 SINGLE VIEW PELVIS; 3 VIEWS SACRUM AND COCCYX CLINICAL HISTORY: Fall. Pelvic and tailbone pain. FINDINGS: An AP view of the pelvis with 3 additional views of the sacrum and coccyx are obtained. No prior studies are available for comparison at the time of dictation. The skeletal structures are osteopenic. There is no radiographic evidence of acute fracture involving the hips or bony pelvis. There is no radiographic evidence of sacrococcygeal fracture. Advanced lumbosacral spondylosis is partially visualized. Advanced arthritic change and joint space narrowing is seen in both hips, left greater than right. Sclerotic change is noted in the sacroiliac joints. Surgical clips and suture material project over the pelvis. There is no bowel obstruction. The overlying soft tissues are normal as imaged. IMPRESSION: 1. There is no radiographic evidence of acute fracture involving the hips or bony pelvis. 2. There is no radiographic evidence of sacrococcygeal fracture. 3. Osteopenia and degenerative change as above. Electronically signed by: Shorty Osman M.D. 10/13/2021 5:26 PM ECG Data Indication: + weakness Rate (beats per minute): 67 Rhythm: + normal sinus ECG Intervals/blocks: + First degree AV block, + Normal QRS and + Normal QT-c ECG ST segments: + Normal ST segments MDM Narrative Vital signs stable. Labs and imaging within normal limits. Patient be admitted to the [facility] [place] [facility] for recurrent falls. Impression & Plan Recurrent falls Discharge Plan Visit Data Chief Complaint: Fall Stated Complaint: FELL Discharge Problem: Recurrent falls Patient Disposition: Being Evaluated by Hospitalist Forms Stand Alone Forms: My [facility] Prescriptions Prescriptions: No Action enalapril maleate 20 mg Tablet 20 mg PO BID RF: 0 amlodipine [Norvasc] 5 mg Tablet 5 mg PO QAM RF: 0 simvastatin [Zocor] 40 mg Tablet 20 mg PO Q OTHER DAY RF: 0 tamsulosin [Flomax] 0.4 mg Capsule 0.4 mg PO PM RF: 0 finasteride 5 mg Tablet 5 mg PO QAM RF: 0 entacapone [Comtan] 200 mg Tablet 200 mg PO QID RF: 0 carbidopa-levodopa 25-100 mg Tablet 2 tab PO QID RF: 0 rasagiline [Azilect] 1 mg Tablet 1 mg PO DAILY RF: 0 amantadine HCl 100 mg tablet 100 mg PO TID RF: 0 Referrals Referrals: Javier Londono MD [Primary Care Provider] -
--- NOTE | 2021-10-13 16:33 | CT Scan Report ---
HEAD CT NONCONTRAST CT DOSE: 1090.89 mGy.cm HISTORY: fall TECHNIQUE: Multiaxial CT images of the head were performed without the use of intravenous contrast. A utomated exposure control was utilized for this study. A dose lowering technique was utilized adheri ng to the principles of ALARA. Comparison: None. Findings: The paranasal sinuses and mastoid air cells are clear. The calvarium and skull base are int act. There is no mass, hematoma, midline shift, acute infarct. White matter hypodensity is nonspecifi c but suggestive of microvascular ischemic change. The ventricles and sulci demonstrate mild age-rela lizeth involutional changes. Impression: No acute intracranial abnormality. ACT 112: Negative or not required by law. Electronically signed by: Terry Baltazar M.D. 10/13/2021 4:31 PM
[2021-10-13 16:35] LABS: Hemoglobin 13.3 g/dl (14.0-18.0); Mean Corpuscular Hemoglobin 32.1 pg (25.0-34.0); Mean Corpuscular Hgb Conc 33.3 g/dL (32.0-36.0); Mean Corpuscular Volume 96.6 fL (80.0-100.0); Mean Platelet Volume 11.3 fL (9.4-12.4); Platelet Count 80 K/uL (130-400); RDW Coefficient of Variation 13.3 % (11.5-14.5); RDW Standard Deviation 47.7 fL (36.4-46.3); Red Blood Count 4.14 M/uL (4.63-6.08); White Blood Count 6.07 K/ul (4.8-10.8)
--- NOTE | 2021-10-13 16:37 | CT Scan Report ---
CERVICAL SPINE CT CT DOSE: HISTORY: fall TECHNIQUE: Multiaxial CT images of the cervical spine were performed and reformatted in the sagittal and coronal plane without the use of contrast. A dose lowering technique was utilized adhering to e principles of ALARA. COMPARISON: None. FINDINGS: No fractures. The C3-C4 vertebral bodies and facets are fused. [id number] degenerativ e disc disease throughout the cervical spine. There is 2 mm of anterolisthesis of C4 on C5. This is l ikely due to long-standing degenerative change. Prevertebral soft tissues and the C1-C2 interval are intact. No pneumothorax. IMPRESSION: No fractures within the cervical spine. ACT 112: Negative or not required by law. Electronically signed by: Terry Baltazar M.D. 10/13/2021 4:35 PM
[2021-10-13 16:45] LABS: Anion Gap 3 (3-11); BUN Creatinine Ratio 23.4 (10-20); Blood Urea Nitrogen 33 mg/dl (6-23); Calcium 8.8 mg/dl (8.5-10.1); Carbon Dioxide 25 mmol/L (21-32); Chloride 112 mmol/L (98-107); Est GFR (African American) 51.9 ml/min; Est GFR (Non-African American) 44.8 ml/min; Glucose 112 mg/dl (70-99(Fasting)); Sodium 140 mmol/L (136-145)
[2021-10-13 17:03] LABS: Basophils # (auto) 0.01 K/uL (0-0.2); Basophils % (auto) 0.2 %; Eosinophils # (auto) 0.08 K/uL (0-0.50); Eosinophils % (auto) 1.3 %; Immature Granulocytes # (auto) 0.01 K/uL (0.00-0.02); Immature Granulocytes % (auto) 0.2 %; Lymphocytes % (auto) 11.5 %; Monocytes # (auto) 0.63 K/uL (0.24-0.82); Monocytes % (auto) 10.4 %; Neutrophils # (auto) 4.64 K/uL (1.4-6.5); Neutrophils % (auto) 76.4 %; Platelet Estimate Decreased (Normal); Toxic Vacuolation 1+
--- NOTE | 2021-10-13 17:27 | XRay Report ---
SINGLE VIEW PELVIS; 3 VIEWS SACRUM AND COCCYX CLINICAL HISTORY: Fall. Pelvic and tailbone pain. FINDINGS: An AP view of the pelvis with 3 additional views of the sacrum and coccyx are obtained. No prior studies are available for comparison at the time of dictation. The skeletal structures are oste openic. There is no radiographic evidence of acute fracture involving the hips or bony pelvis. There is no radiographic evidence of sacrococcygeal fracture. Advanced lumbosacral spondylosis is partially visualized. Advanced arthritic change and joint space narrowing is seen in both hips, left greater t alvarez right. Sclerotic change is noted in the sacroiliac joints. Surgical clips and suture material pro ject over the pelvis. There is no bowel obstruction. The overlying soft tissues are normal as imaged. IMPRESSION: 1. There is no radiographic evidence of acute fracture involving the hips or bony pelvis. 2. There is no radiographic evidence of sacrococcygeal fracture. 3. Osteopenia and degenerative change as above. Electronically signed by: Shorty Osman M.D. 10/13/2021 5:26 PM
[2021-10-13] MEDS: SODIUM CHLORIDE 0.9% 500 ML IV SCH ×2 (17:33→23:29)
--- NOTE | 2021-10-13 17:34 | XRay Report ---
SINGLE VIEW CHEST CLINICAL HISTORY: Fall. FINDINGS: An AP, portable, upright chest radiograph is obtained. No prior studies are available for c omparison at the time of dictation. The heart is mildly enlarged. The pulmonary vasculature is noncon gested. The lungs and pleural spaces are clear. No pneumothorax is seen. The skeletal structures are osteopenic. The bony thorax is grossly intact. IMPRESSION: Mild cardiomegaly with no active disease in the chest. ACT 112: Negative or not required by law. Electronically signed by: Shorty Osman M.D. 10/13/2021 5:32 PM
--- NOTE | 2021-10-13 17:35 | XRay Report ---
LUMBAR SPINE 5 VIEWS CLINICAL HISTORY: Fall. Low back pain. FINDINGS: 5 views of the lumbar spine are obtained. No prior studies are available for comparison at the time of dictation. The skeletal structures are osteopenic. There is no radiographic evidence of fracture or malalignment. Vertebral body height and alignment are maintained. There is straightening of the lumbar lordosis. Anterior and lateral marginal osteophytes are seen throughout. The transverse and spinous processes are intact. There is no evidence of spondylolysis. There is advanced disc spac e narrowing at L5-S1 and moderate disc space narrowing at L4-L5. Milder disc space narrowing is seen at the remaining lumbar levels. Facet arthropathy is present in the lower lumbar region. The visualiz ed bony pelvis appears intact. Advanced arthritic change is seen in the hips, left greater than right . Degenerative sclerosis is noted in the sacroiliac joints. There is a nonobstructed abdominal bowel gas pattern. Moderate fecal retention is noted throughout the colon. There is advanced atheroscleroti c calcification of the abdominal aorta. Suture material and surgical clips project over the pelvis. IMPRESSION: 1. No acute bony abnormality is seen involving the lumbar spine. 2. Osteopenia and spondylotic change as above. ACT 112: Negative or not required by law. Electronically signed by: Shorty Osman M.D. 10/13/2021 5:34 PM
[2021-10-13 17:46] LABS: Appearance Urine Clear (Clear); Bilirubin Urine Negative (Negative); Blood Urine Negative (Negative); Color Urine Dark Yellow; Glucose Urine UA Negative (Negative); Ketones Urine Negative (Negative); Leukocyte Esterase Urine Negative (Negative); Nitrite Urine Negative (Negative); Protein Urine Negative (Negative); Specific Gravity Urine 1.017 (1.000-1.030); Urobilinogen Urine Negative (Negative); pH Urine 5.5 (4.5-7.5)
--- NOTE | 2021-10-13 17:58 | History & Physical Report ---
Date of Service October 13, 2021 Assessment & Plan (1) Recurrent falls: Plan: ?secondary to dizziness side effect of amantadine +/- progression of Parkinson's disease Discussed with Dr Pearson, will decrease dose of amantadine to twice daily initially PT/OT evals - possible need for inpatient rehabilitation (2) Parkinson disease: Plan: Continue amantadine (reduced dose), Sinemet, Comtan, Azilect Consult neurology (3) Visual hallucinations: Plan: Concerning for amantadine side effect given sudden onset with starting this medication - weaning as above (4) BPH (benign prostatic hyperplasia): Plan: Continue tamsulosin and finasteride (5) HTN (hypertension): Plan: Son-in-law mentioned some orthostasis Will therefore continue enalapril 20mg PO BID and hold his amlodipine (6) Osteoarthritis of left hip: Plan: Noted on no chronic medications for this. Plan: VTE Prophylaxis - low risk, deferred Diet - regular Disposition - admit to med/surg Admission and Anticipated Discharge Date Admission Date: October 13, 2021 History of Present Illness Chief Complaint: Recurrent falls Primary Care Provider: MD Saturnino Dykes 10-12 year with Parkinson's disease who presents to the ER with recurrent falls. His daughter provides most of the history as she reports the patients history isn't very reliable. In August he was weaned off pramipexole and started on amantadine due to mildly worse dyskinesia. His daughter feels his balance, visual hallucinations and slurred speech has been progressively worse since when but much accelerated when he finished the transition around October 09. He has had Parkinson's for around 14 years but it has been very well controlled at that time. He is under Dr Carter with [facility]. They have not been able to go into an appointment to see him but on discussion with the practice it was advised he came in for lab work, CT head and increase Sinemet from 1.5 tabs QID to 2 tabs QID 2 days ago. The lab work is yet to return but reportedly his CT head was normal. His daughter reports he has now fallen 4 times in the last week. No lightheadedness, chest pain or shortness of breath before falling. No vertigo- like sensation. He puts down his balance to his OA in his left hip but per his daughter this has been longstanding but his loss of balance is new. The visual hallucinations have been during the day and night and he is getting less sleep because of them - for example he sees ants climbing up the wall instead of the string for the light switch but he is aware what he is seeing isn't there. He is worse towards the end of the day but this is not unusual for him. His daughter h as also noticed when she picks him up his stiffness has increased. Also having occasional urinary accidents at night which is unusual for him. He lives in [place] but has family nearby therefore due to worsening symptoms they decided to drive to [facility] today. In the ER extensive imaging of CT head, cervical spine, pelvis, sacrum, lumbar spine, CXR showed no acute pathology. He was referred to medicine for admission and ongoing management as he was not felt to be safe from his family to return home at this time. Allergies Allergy/AdvReac Type Severity Reaction Status Date / Time No Known Allergies Allergy Verified 10/13/21 19:29 Home Medications Medication Instructions Recorded Confirmed Type amlodipine 5 mg tablet (Norvasc) 5 mg PO QAM 05/05/19 10/13/21 History enalapril maleate 20 mg tablet 20 mg PO BID 05/05/19 10/13/21 History finasteride 5 mg tablet 5 mg PO QAM 05/05/19 10/13/21 History simvastatin 40 mg tablet (Zocor) 20 mg PO Q OTHER DAY 05/05/19 10/13/21 History tamsulosin 0.4 mg capsule (Flomax) 0.4 mg PO PM 05/05/19 10/13/21 History amantadine HCl 100 mg tablet 100 mg PO TID 10/13/21 10/13/21 History carbidopa 25 mg-levodopa 100 mg 2 tab PO QID 10/13/21 10/13/21 History tablet entacapone 200 mg tablet (Comtan) 200 mg PO QID 10/13/21 10/13/21 History rasagiline 1 mg tablet (Azilect) 1 mg PO DAILY 10/13/21 10/13/21 History Past Med/Surg History Medical History (Updated 10/14/21 @ 07:24 by Prateek Kaiser MD) BPH (benign prostatic hyperplasia) Constipation Stable - takes OCT stool softner PRN Hearing deficit [place] HTN (hypertension) Hyperlipemia Parkinson disease Stable- tremor, mild rigidity, balance issues- [facility] Thrombocytopenia CHRONIC- DOES NOT FOLLOW WITH HEME - RECORDS SHOW PLATELETS IN LOW 90S Urinary incontinence, urge Surgical History History of appendectomy History of bursectomy RT KNEE History of colon resection to r/o CA; benign History of colonoscopy History of lumbar surgery Slow to wake up after anesthesia One episode- only occurred after colon resection- slow to wake - no ICU stay or prolonged intubation Family History Other No family history of adverse response to anesthesia Social History Smoking Status: Never smoker Second Hand Exposure: No; Hx Alcohol Use: No Hx Substance Use: No Preferred Language: Indonesian Communication Ability: Effective Mattress Filler Required: No Beliefs That Will Affect Care: None marital status: Current Living Situation: Alone Current Living Situation Comment: 3 Daughters one at the house at all time Other Information That Helps Us Care for You: No Feels Safe at Home: Yes Safety Concerns: Feels Safe At This Time Assistive Devices: Cane, Hearing Aid - Left, Hearing Aid - Right and Walker Review of Systems Review of Systems: All systems reviewed & are unremarkable except as noted in HPI & below Physical Exam Constitutional: WD/WN, vitals as above no acute distress Eyes: PERRL, conjunctivae normal, anicteric sclerae Neck: trachea midline, no thyromegaly Respiratory: normal respiratory effort, lungs clear to auscultation Cardiovascular: RRR, no murmur, no edema Gastrointestinal (Abdomen): normal bowel sounds, soft, nontender, no hepatosplenomegaly Musculoskeletal: no cyanosis or clubbing, extremities motor strength 5/5 Skin: no rashes, warm and dry Neurologic: moves all extremities and awake; no focal motor deficits and not confused Speech / Cognition: + abnormal speech (mildly slurred speech in conversation but not exam); no expressive aphasia and no receptive aphasia Motor/Sensory: no tremor and no pronator drift mild bilateral cogwheel rigidity Psychiatric: A+Ox3, euthymic affect Results & Data Results & Data ([facility]) Vital Signs (Past 12 Hours) Vital Signs Temp Pulse Pulse Resp BP BP Pulse Ox 10/13/21 16:00 86 16 155/86 H 99 10/13/21 15:18 36.6 C 66 18 143/74 H 96 Laboratory Results Abnormal lab results 10/13/21 10/13/21 10/13/21 Range/Units 16:10 16:10 17:56 RBC 4.14 L (4.63-6.08) M/uL Hgb 13.3 L (14.0-18.0) g/dl POC Hgb 13.3 L (14.0-18.0) g/dl Hct 40.0 L (40.1-51.0) % POC Hct 39 L (42-52) % RDW Std Deviation 47.7 H (36.4-46.3) fL Plt Count 80 L (130-400) K/uL Lymph # (Auto) 0.70 L (1.2-3.4) K/uL Platelet Estimate Decreased L (Normal) POC Sodium 145 H (135-144) mmol/L Chloride 112 H (98-107) mmol/L POC Total CO2 23 L (24-31) mmol/L POC BUN 29 H (7-18) mg/dl BUN 33 H (6-23) mg/dl Creatinine 1.41 H (0.6-1.4) mg/dl BUN/Creatinine Ratio 23.4 H (10-20) Glucose 112 H (70-99(Fasting)) mg/dl POC Glucose (other) 100 H (70-99) mg/dl POC Ioniz Calcium Angel 1.11 L (1.12-1.32) mmol/l Diagnostic Findings HEAD CT NONCONTRAST CT DOSE: 1090.89 mGy.cm HISTORY: fall TECHNIQUE: Multiaxial CT images of the head were performed without the use of intravenous contrast. Automated exposure control was utilized for this study. A dose lowering technique was utilized adhering to the principles of ALARA. Comparison: None. Findings: The paranasal sinuses and mastoid air cells are clear. The calvarium and skull base are intact. There is no mass, hematoma, midline shift, acute infarct. White matter hypodensity is nonspecific but suggestive of microvascular ischemic change. The ventricles and sulci demonstrate mild age-related involutional changes. Impression: No acute intracranial abnormality. SINGLE VIEW CHEST CLINICAL HISTORY: Fall. FINDINGS: An AP, portable, upright chest radiograph is obtained. No prior studies are available for comparison at the time of dictation. The heart is mildly enlarged. The pulmonary vasculature is noncongested. The lungs and pleural spaces are clear. No pneumothorax is seen. The skeletal structures are osteopenic. The bony thorax is grossly intact. IMPRESSION: Mild cardiomegaly with no active disease in the chest. LUMBAR SPINE 5 VIEWS CLINICAL HISTORY: Fall. Low back pain. FINDINGS: 5 views of the lumbar spine are obtained. No prior studies are available for comparison at the time of dictation. The skeletal structures are osteopenic. There is no radiographic evidence of fracture or malalignment. Vertebral body height and alignment are maintained. There is straightening of the lumbar lordosis. Anterior and lateral marginal osteophytes are seen throughout. The transverse and spinous processes are intact. There is no evidence of spondylolysis. There is advanced disc space narrowing at L5-S1 and moderate disc space narrowing at L4-L5. Milder disc space narrowing is seen at the remaining lumbar levels. Facet arthropathy is present in the lower lumbar region. The visualized bony pelvis appears intact. Advanced arthritic change is seen in the hips, left greater than right. Degenerative sclerosis is noted in the sacroiliac joints. There is a nonobstructed abdominal bowel gas pattern. Moderate fecal retention is noted throughout the colon. There is advanced atherosclerotic calcification of the abdominal aorta. Suture material and surgical clips project over the pelvis. IMPRESSION: 1. No acute bony abnormality is seen involving the lumbar spine. 2. Osteopenia and spondylotic change as above. SINGLE VIEW PELVIS; 3 VIEWS SACRUM AND COCCYX CLINICAL HISTORY: Fall. Pelvic and tailbone pain. FINDINGS: An AP view of the pelvis with 3 additional views of the sacrum and coccyx are obtained. No prior studies are available for comparison at the time of dictation. The skeletal structures are osteopenic. There is no radiographic evidence of acute fracture involving the hips or bony pelvis. There is no radiographic evidence of sacrococcygeal fracture. Advanced lumbosacral spondylosis is partially visualized. Advanced arthritic change and joint space narrowing is seen in both hips, left greater than right. Sclerotic change is noted in the sacroiliac joints. Surgical clips and suture material project over the pelvis. There is no bowel obstruction. The overlying soft tissues are normal as imaged. IMPRESSION: 1. There is no radiographic evidence of acute fracture involving the hips or bony pelvis. 2. There is no radiographic evidence of sacrococcygeal fracture. 3. Osteopenia and degenerative change as above. Medications Administered ER Medications Given: NSS 500ml bolus, NSS @ 125ml/hr ECG Indication: altered mental status Rate (beats per minute): 67 Rhythm: normal sinus Findings: + 1st degree AV block Comparison ECG Date: no prior available Code Status & VTE Plan Code Status Full VTE Prophylaxis Plan VTE Prophylaxis will be ordered: No Reason for no VTE drug order: Treatment not indicated Reason for no VTE mechanical prophylaxis: Treatment not indicated PG Care Time/CCT Total # of Minutes Spent Total Time Spent with Patient: Total time spent is greater than 50% in coordination of care (as documented) at patient's floor/unit and/or counseling patient: Coding Level of Care Code 38687 Initial Inpt Care Lvl 2 Diagnoses BPH (benign prostatic hyperplasia) N40.0 HTN (hypertension) I10 Recurrent falls R29.6 Osteoarthritis of left hip M16.12 Visual hallucinations R44.1 Parkinson disease G20
[2021-10-13 18:08] LABS: iSTAT Creatinine 1.3 mg/dl (0.6-1.3); iSTAT Hemoglobin 13.3 g/dl (14.0-18.0); iSTAT Ionized Calcium 1.11 mmol/l (1.12-1.32); iSTAT Potassium 4.3 mmol/L (3.3-5.0)
[2021-10-13] MEDS ORDERED: CARBIDOPA/LEVODOPA 25/100MG TAB PO STA (19:04)
--- NOTE | 2021-10-13 21:05 | Magnetic Resonance Report ---
Brain MRI WITHOUT CONTRAST HISTORY: new onset slurred speech TECHNIQUE: Multiplanar multisequence MRI of the brain was performed without the use of contrast. COMPARISON STUDY: Head CT 10/13/2021. FINDINGS: Motion artifact. There is no mass, hematoma, midline shift, or acute infarct. The paranasal sinuses are clear. The mastoid air cells are clear. The ventricles and sulci demonstrate mild age-re lated involutional changes. Scattered foci of T2 hyperintensity seen within the periventricular and s ubcortical white matter are nonspecific but suggestive of mild microvascular ischemic changes. The ma obdulia vascular flow voids at the skull base are well-maintained. IMPRESSION: Motion artifact. No definite acute intracranial abnormality. ACT 112: Negative or not required by law. Electronically signed by: Terry Baltazar M.D. 10/13/2021 9:03 PM
[2021-10-13] MEDS ORDERED: LACTATED RINGER'S 1,000 ML IV SCH (21:24)
[2021-10-13] MEDS: ENALAPRIL MALEATE 10 MG TAB PO SCH (22:35)
[2021-10-13] MEDS: TAMSULOSIN HCL 0.4 MG CAP PO SCH (22:36)
[2021-10-13] MEDS: RASAGILINE: ORDER AWAITING ACTION SCH (23:17)
[2021-10-14] MEDS: CARBIDOPA/LEVODOPA 25/100MG TAB PO SCH ×4 (06:19→19:16)
[2021-10-14] MEDS: ENTACAPONE 200 MG TAB PO SCH ×4 (06:19→19:17)
[2021-10-14] MEDS: ENALAPRIL MALEATE 10 MG TAB PO SCH ×2 (09:30→20:23)
[2021-10-14] MEDS: FINASTERIDE 5 MG TAB PO SCH (09:30)
[2021-10-14] MEDS: AMANTADINE HCL 100 MG CAPSULE PO SCH ×2 (09:31→20:23)
[2021-10-14] MEDS: RASAGILINE: ORDER AWAITING ACTION SCH ×2 (09:31→16:44)
--- NOTE | 2021-10-14 11:34 | Neurology Consultation ---
Date of Consultation October 14, 2021 Assessment & Plan (1) Parkinson disease: (2) Visual hallucinations: (3) Memory deficits: (4) Tremor: this patient has a longstanding and currently significant Parkinson's disease. He was admitted October 13 for increasing confusion, hallucinations, and falling. On examination currently he is not showing any signs of obvious encephalopathy but does have some mild cognitive / memory problems particularly short-term (consistent with vascular / aging). He has rigidity in the legs (not arms), mild bradykinesia in general, significantly abnormal gait, and a resting tremor in the left upper extremity. There is also some action tremor in the hands [place] aterally left greater than right side. I believe that his recent increase in confusion and hallucinations was due to initiating amantadine. He does not have any dyskinesias currently and his deterioration of gait probably came from stopping the pramipexole. He has mild cognitive impairment consistent with age and Parkinson's disease (also vascular with mild small vessel ischemic disease seen on MRI) Recommendations: 1. there are multiple different avenues of approach to this problem. The idea is to help his parkinsonism ( decrease tremor, improved balance and gait, and decrease rigidity) without giving significant side effects (confusion, hallucinations, lightheadedness with standing, and dyskinesia). Patients themselves do not mind the dyskinesia and it is not an issue if it is mild. 2. after discussion with the patient and his family, we have elected to taper off amantadine ( twice a day for 3 days then once a day for 3 days then stop ). 3. keep carbidopa/levodopa 25/100, at 2 tablets 4 times a day along with Entacapone 200 milligrams 4 times a day (together). 4. I do not see what the Azilect is doing for him at this time and we may consider discontinuing this in the future ( keep for now). 5. depending on his clinical course and "effect versus side effects" of the medication, we may alter his carbidopa levodopa or add pramipexole ER back. 6. physical, occupational, and speech therapy consultations . He would be a rehab hospital candidate 7. this patient should not be using a cane anymore for ambulation. I suggest a walker but would defer to physical and occupational therapy for the specific device 8. follow-up in Neurology in 2 weeks with a PA Overall, I spent a total of 150 minutes with this case including review of records, review of MRI films, direct evaluation the patient at bedside and discussion of the case including differential diagnosis and treatment options with the patient, his 2 daughters (and son-in-law, who came in the room for discussion), and Dr. Kaiser. History of Present Illness Reason for Consultation: Patient is an 86-year-old, who I was asked to see at the request of Dr. Kaiser, for neurologic consultation regarding Parkinson's disease and acute issues of falling, confusion, and hallucinations. Requesting Physician: Dr. Kaiser. Attending Physician: Prateek Kaiser MD History of Present Illness The patient provides a good history, particularly senior living, but it is also significantly supplemented by his 2 daughters (Danita in the room, and Yudelka via phone). Patient believes he 1st started getting intermittent tremors and twitches of his left arm back in the mid 90s. These were very intermittent and did not progress significantly over the next 5-10 years. In 2006, he was diagnosed with Parkinson's disease by Dr. Erickson, movement disorder specialist at [facility]. He was having left upper extremity tremor and some balance problems at that. He was initiated on Mirapex ER and Azilect initially. Later, he was put on Stalevo. He did fairly well, making very mild progression in symptoms over the ensuing 10-12 years. By about 2-3 years ago, he was on carbidopa / levodopa 25/101 pill 4 times a day with Entacapone 200 milligrams 1 pill 4 times a day with the Sinemet. In addition, he was on pramipexole ER 0.75 milligrams daily and Azilect 1 milligram daily. Although he had some rest tremor, and some nonspecific stiffness, slowness, and balance issues. He was functioning fairly well and was not having any significant dyskinesias, hallucin ations, confusion, or lightheadedness with standing. He was very active physically. About 2 ( maybe to 3) years ago he had some issues, that he notice, getting words out. He knew what he wanted to say but it was difficult. He thought his short-term memory was not as good. His gait slowly got a little bit worse and he was much less active since Covid-19 started. By 1 year ago he was getting a little bit worse with gait and tremor. He saw Dr. Erickson in February of 2021 and he increased his carbidopa / levodopa to 1.5 tablets 4 times a day, keeping all the other medications the same. Around this time, the family noted some dyskinesias. There was some fluctuation throughout the day with some wearing off effect between carbidopa levodopa doses but no true on/ off phenomenon. By the end of the day or when he was tired, his speech became more slurred and he was perhaps a little more confused. This was particularly true at night. He went from using a cane occasionally 2 years ago, to using it regularly over the last year. Since Dr. Erickson left [facility] earlier this year, he ended up seeing another movement disorder specialist, Dr. Celeste, at [facility] on September 01. This physician was concerned about some dyskinesia and the stiffness and slowness of gait. Tremor was there but it was the same. The 1st change was decreasing pramipexole to 1/2 tablet a day, for 1 week, then discontinuing. At the same time, he initiated amantadine 100 milligrams a day for 1 week, then twice daily for 1 week, then 100 milligrams 3 times a day which the patient finally got to the beginning of the last week in September. The patient started having slurred speech, some intermittent confusion particularly at night, visual hallucinations ( seeing ants or bugs moving or perhaps an abnormal like a cat, or shadows moving like a person). He started having worse balance and could fall. On October 10 his carbidopa/ levodopa was increased to 2 tablets 4 times a day. Over the 2 days prior to admission the patient was having multiple falls. He arrived to the emergency room October [id number] with a temperature of 36.6, pulse 66 and regular, respiratory rate 18, blood pressure 143/74, and O2 saturation 96 percent. Patient had no headache and was not overtly encephalopathic in the emergency room. CBC showed mild anemia and there was an increase in BUN and creatinine. Platelet count was 80 (which is chronic ). Urinalysis was unremarkable. CT scan of the cervical spine showed no fractures. CT scan of the head showed no acute changes. Chest x-ray showed mild cardiomegaly and no acute processes. Lumbar spine, sacrum, coccyx, and pelvis plain x-ray showed no fractures. MRI of the brain showed no acute stroke and no signs of subdural or other hemorrhage. There was mild generalized atrophy and old small vessel ischemic disease, but not as much as I would have typically expected for somebody with his age and condition. I reviewed these films. This morning the patient is stable with no obvious confusion or hallucinations. His resting tremor is about the same. He denies headache or pain. He is not weak or numb. Nursing reports no new events. Blood pressure was 147/78 and he is afebrile. Allergies Allergy/AdvReac Type Severity Reaction Status Date / Time No Known Allergies Allergy Verified 10/13/21 19:29 Home Medications Medication Instructions Recorded Confirmed Type amlodipine 5 mg tablet (Norvasc) 5 mg PO QAM 05/05/19 10/13/21 History enalapril maleate 20 mg tablet 20 mg PO BID 05/05/19 10/13/21 History finasteride 5 mg tablet 5 mg PO QAM 05/05/19 10/13/21 History simvastatin 40 mg tablet (Zocor) 20 mg PO Q OTHER DAY 05/05/19 10/13/21 History tamsulosin 0.4 mg capsule (Flomax) 0.4 mg PO PM 05/05/19 10/13/21 History amantadine HCl 100 mg tablet 100 mg PO TID 10/13/21 10/13/21 History carbidopa 25 mg-levodopa 100 mg 2 tab PO QID 10/13/21 10/13/21 History tablet entacapone 200 mg tablet (Comtan) 200 mg PO QID 10/13/21 10/13/21 History rasagiline 1 mg tablet (Azilect) 1 mg PO DAILY 10/13/21 10/13/21 History Patient History Medical History BPH (benign prostatic hyperplasia) Constipation Stable - takes OCT stool softner PRN Hearing deficit [place] HTN (hypertension) Hyperlipemia Parkinson disease Stable- tremor, mild rigidity, balance issues- Follows with neurology = [facility] Thrombocytopenia CHRONIC- DOES NOT FOLLOW WITH HEME - RECORDS SHOW PLATELETS IN LOW 90S Urinary incontinence, urge Surgical History History of appendectomy History of bursectomy RT KNEE History of colon resection to r/o CA; benign History of colonoscopy History of lumbar surgery Slow to wake up after anesthesia One episode- only occurred after colon resection- slow to wake - no ICU stay or prolonged intubation Family History Mother , age 88 Non Hodgkin's lymphoma Father , age 90 with congestive heart failure CHF (congestive heart failure) Other No family history of adverse response to anesthesia Social History (Updated 10/14/21 @ 11:20 by Ronnie Pearson MD) Smoking Status: Former smoker Tobacco Type: Pipe Number of Years Since Quit: 56; Second Hand Exposure: No; Hx Alcohol Use: Yes Alcohol type: wine Alcohol Intake Frequency: Monthly or Less Hx Substance Use: No Preferred Language: Serbian Communication Ability: Effective Supervisor Cell Maintenance Required: No Beliefs That Will Affect Care: None marital status: / Current Living Situation: Alone Current Living Situation Comment: 3 Daughters one at the house at all time current occupational status: retired 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 Other Information That Helps Us Care for You: No Feels Safe at Home: Yes Safety Concerns: Feels Safe At This Time Assistive Devices: Cane, Hearing Aid - Right and Walker Review of Systems Constitutional: no fever, no fatigue and no weakness Eyes: no diplopia, no eye pain and no worsening vision Ear, Nose, Mouth, Throat: no ear pain, no tinnitus, no hearing loss, no dizziness, no snoring, no hoarseness and no dysphagia Respiratory: no cough and no dyspnea Cardiovascular: no chest pain, no palpitations and no lightheadedness Gastrointestinal: no abdominal pain, no nausea and no vomiting Musculoskeletal: no back pain, no neck pain, no radicular pain, no joint pain and no myalgia Integumentary: no rash and no lesions Neurologic: + tremor(s) and + memory loss; no gait abnormality, no localized weakness, no generalized weakness, no tingling, no numbness, no abnormal movements, no headache(s), no abnormal speech and no confusion Psychiatric: no depression, no irritability, no anxiety, no difficulty concentrating, no confusion and no hallucinations Endocrine: no fatigue and no flushing Hematologic / Lymphatic: no easy bleeding and no easy bruising Allergy / Immunological: no urticaria and no problem reported Exam (Neuro) Physical Exam: The patient is left-handed. The patient is awake, alert, and attentive. Speech is Occasionally mildly dysarthric with speaking more rapidly but there is no obvious aphasia. He stutters a little bit at times. His voice is strong and not soft or hoarse.. The patient can name objects, repeat phrases, and has normal spontaneous speech. Mentation and thought processes are intact, with orientation to person, place and time, and normal fund of knowledge. Attention and concentration are normal. Mood and affect are normal and appropriate. General appearance and grooming are normal. He does have some short-term memory deficits. Pupils are 4 mm bilaterally and reactive to light. Extraocular eye muscles are intact without nystagmus. Visual acuity and visual jiang seem normal grossly to confrontation. There are no deficits to sensation in the face in all 3 distributions of the fifth cranial nerve bilaterally. Corneal reflexes are positive bilaterally. Facial strength and symmetry was normal bilaterally. Hearing seems normal bilaterally. Palate moves well without asymmetry. There is normal sternocleidomastoid and trapezius (shoulder shrug) strength bilaterally. Tongue is midline with good strength bilaterally. Neck has a full range of motion without discomfort. There are no cervical bruits bilaterally. There are no cranial or ocular bruits. Heart is without murmur. There is a regular rhythm and rate. Cervical, thoracic, and lumbar spine are nontender to palpation. Gait Is very difficult. He has a very difficult time standing up on his own and needs the support of 1 or 2. he tends to fall back into the right and is somewhat slow and shuffling with his gait. He has increased tremor of the left arm with gait. With outstretched arms there is no drift. He has a resting tremor in the left upper extremity. There is no head tremor or right upper extremity resting tremor. There is no ataxia with finger to nose testing , however, he has a left greater than right postural and action tremor present. There is good facility in the hands. No other abnormal involuntary movements are noted. Motor strength is 5/5 diffusely in the arms bilaterally including deltoids, biceps, triceps, brachioradialis, wrist flexors and extensors, health practice manager, and intrinsic hand muscles. Motor strength is 5/5 diffusely in the legs bilaterally including hip flexors, quadriceps, hamstrings, gastrocnemius, tibialis anterior, tibialis posterior, and Peroneii muscles. Toe extensors are normal and there is good bulk in the extensor digitorum brevis muscles bilaterally. The arms have no rigidity or cogwheeling. There is lead pipe type rigidity of the legs bilaterally Sensory examination is intact to touch and pin throughout all 4 limbs diffusely. Reflexes are 1/4 in the biceps, triceps, brachioradialis, and quadriceps tendons bilaterally. Achilles reflexes are absent bilaterally. There is no clonus bilaterally. Toes are downgoing with plantar stimulation bilaterally. Peripheral pulses are present and of normal quality distally in all 4 limbs. There is no peripheral edema noted in the limbs. Results & Data ([facility]) Vital Signs (Past 12 Hours) Vital Signs Temp Pulse Resp BP Pulse Ox 10/14/21 07:40 36.3 C L 62 16 147/78 H 93 PG Care Time/CCT Total # of Minutes Spent Total Time Spent with Patient: Total time spent is greater than 50% in coordination of care (as documented) at patient's floor/unit and/or counseling patient: Coding Level of Care Code 35309 Initial Inpt Care Lvl 3 Diagnoses Parkinson disease G20 Visual hallucinations R44.1 Memory deficits R41.3 Tremor R25.1 Time Spent (min) 150
--- NOTE | 2021-10-14 12:30 | Electrocardiogram Report ---
Test Reason : Blood Pressure : / mmHG Vent. Rate : 067 BPM Atrial Rate : 067 BPM P-R Int : 278 ms QRS Dur : 084 ms QT Int : 404 ms P-R-T Axes : 016 009 008 degrees QTc Int : 426 ms Poor data quality, interpretation may be adversely affected Sinus rhythm with 1st degree A-V block Low voltage QRS Abnormal ECG No previous ECGs available Confirmed by Shad Tapia ([id number]) on 10/14/2021 12:29:51 PM Referred By: REFERRED SELF Confirmed By:Parag Tapia
--- NOTE | 2021-10-14 17:48 | Hospitalist Progress Note ---
Date of Service October 14, 2021 Assessment & Plan (1) Recurrent falls: Plan: ?secondary to dizziness side effect of amantadine +/- progression of Parkinson's disease Discussed with Dr Pearson, will decrease dose of amantadine to twice daily initially for three days then once daily for three days then stop. PT/OT evals (OT recommending inpatient rehab) - family requesting inpatient rehab ?[facility] (2) Parkinson disease: Plan: Continue amantadine (reduced dose), Sinemet, Comtan, Azilect Consult neurology (3) Visual hallucinations: Plan: Concerning for amantadine side effect given sudden onset with starting this medication - weaning as above (4) BPH (benign prostatic hyperplasia): Plan: Continue tamsulosin and finasteride (5) HTN (hypertension): Plan: Son-in-law mentioned some orthostasis Will therefore continue enalapril 20mg PO BID and hold his amlodipine (6) Osteoarthritis of left hip: Plan: Noted on no chronic medications for this. Plan: VTE Prophylaxis - low risk, deferred Diet - regular Disposition - admit to med/surg Admission and Anticipated Discharge Date Admission Date: October 13, 2021 Subjective No significant change in symptoms but also still on amantadine but just at a reduced amount. Discussed care with Dr Pearson. Review of Systems Review of Systems: All systems reviewed & are unremarkable except as noted in Subjective Physical Exam Constitutional: WD/WN, vitals as above no acute distress Eyes: PERRL, conjunctivae normal, anicteric sclerae Neck: trachea midline, no thyromegaly Respiratory: normal respiratory effort, lungs clear to auscultation Cardiovascular: RRR, no murmur, no edema Gastrointestinal (Abdomen): normal bowel sounds, soft, nontender, no hepatosplenomegaly Musculoskeletal: no cyanosis or clubbing, extremities motor strength 5/5 Skin: no rashes, warm and dry Neurologic: moves all extremities and awake; no focal motor deficits and not confused Speech / Cognition: normal speech (speech improved since yesterday), no expressive aphasia and no receptive aphasia Motor/Sensory: no tremor and no pronator drift Psychiatric: A+Ox3, euthymic affect Results & Data Results & Data ([facility]) Vital Signs (Past 12 Hours) Vital Signs Temp Pulse Resp BP Pulse Ox 10/14/21 15:35 36.4 C L 61 16 139/83 98 07/09/22 07:40 36.3 C L 62 16 147/78 H 93 PG Care Time/CCT Total # of Minutes Spent Total Time Spent with Patient: Total time spent is greater than 50% in coordination of care (as documented) at patient's floor/unit and/or counseling patient: Coding Level of Care Code 18448 Subseq Hosp Care Lvl 2 Diagnoses Recurrent falls R29.6 Parkinson disease G20 Visual hallucinations R44.1 BPH (benign prostatic hyperplasia) N40.0 HTN (hypertension) I10 Osteoarthritis of left hip M16.12
[2021-10-14] MEDS: TAMSULOSIN HCL 0.4 MG CAP PO SCH (20:23)
[2021-10-14] MEDS ORDERED: DOCUSATE SODIUM 100 MG CAP PO ONE (20:43)
[2021-10-14] MEDS ORDERED: SIMVASTATIN 20 MG TAB PO SCH (21:00)
[2021-10-15] MEDS: CARBIDOPA/LEVODOPA 25/100MG TAB PO SCH ×3 (06:46→15:21)
[2021-10-15] MEDS: ENTACAPONE 200 MG TAB PO SCH ×3 (06:46→15:21)
[2021-10-15] MEDS: ENALAPRIL MALEATE 10 MG TAB PO SCH (08:59)
[2021-10-15] MEDS: FINASTERIDE 5 MG TAB PO SCH (08:59)
[2021-10-15] MEDS ORDERED: RASAGILINE 1 MG PO SCH (09:00)
[2021-10-15] MEDS: AMANTADINE HCL 100 MG CAPSULE PO SCH (09:00)
--- NOTE | 2021-10-15 13:59 | Discharge Summary ---
Date of Service October 15, 2021 Admission HPI Per Admitting Provider Saturnino Gamboabrysonstacy 10-12 year with Parkinson's disease who presents to the ER with recurrent falls. His daughter provides most of the history as she reports the patients history isn't very reliable. In August he was weaned off pramipexole and started on amantadine due to mildly worse dyskinesia. His daughter feels his balance, visual hallucinations and slurred speech has been progressively worse since when but much accelerated when he finished the transition around October 09. He has had Parkinson's for around 14 years but it has been very well controlled at that time. He is under Dr Carter with [facility]. They have not been able to go into an appointment to see him but on discussion with the practice it was advised he came in for lab work, CT head and increase Sinemet from 1.5 tabs QID to 2 tabs QID 2 days ago. The lab work is yet to return but reportedly his CT head was normal. His daughter reports he has now fallen 4 times in the last week. No lightheadedness, chest pain or shortness of breath before falling. No vertigo- like sensation. He puts down his balance to his OA in his left hip but per his daughter this has been longstanding but his loss of balance is new. The visual hallucinations have been during the day and night and he is getting less sleep because of them - for example he sees ants climbing up the wall instead of the string for the light switch but he is aware what he is seeing isn't there. He is worse towards the end of the day but this is not unusual for him. His daughter has also noticed when she picks him up his stiffness has increased. Also having occasional urinary accidents at night which is unusual for him. He lives in [place] but has family nearby therefore due to worsening symptoms they decided to drive to [place] today. In the ER extensive imaging of CT head, cervical spine, pelvis, sacrum, lumbar spine, CXR showed no acute pathology. He was referred to medicine for admission and ongoing management as he was not felt to be safe from his family to return home at this time. Principal Diagnosis toxic encephalopathy Discharge Exam The patient is awake, alert and oriented 3, well developed and well nourished, normocephalic and atraumatic, lying in bed and in no acute distress. HEENT--PERRL, EOMI, mucous membranes and oropharynx mildly dry Neck--supple. No JVD. No bruits. Thyroid normal, trachea midline, no adenopathy. Heart--normal S1 and S2. No murmurs, rubs or gallops. Lungs--clear bilaterally, no respiratory distress, no accessory muscle use. Abdomen--normal bowel sounds and soft. Mild epigastric and left sided abdominal pain Extremities--no cyanosis or clubbing. No edema. Dermatologic--normal skin turgor, normal color, no abnormal lymph nodes, no rash. Neurologic--cranial nerves II through XII grossly intact. tremors at rest Rheumatologic--normal range of motion. Psychiatric--normal affect. Discharge Data Allergies Allergy/AdvReac Type Severity Reaction Status Date / Time No Known Allergies Allergy Verified 10/13/21 19:29 Consultations 10/13/21 17:07 ED Decision to Admit Stat 10/13/21 21:24 Consult Neurology Routine Ordered Studies 10/13/21 15:55 CT cervical spine wo con Stat CT head/brain wo con Stat 10/13/21 18:32 MR brain wo con Routine Hospital Course (1) Recurrent falls: Most likely due to side effect of amantadine +/- progression of Parkinson's disease Discussed with Dr Pearsno, will decrease dose of amantadine to twice daily initially for three days then once daily for three days then stop. PT/OT evals (OT recommending inpatient rehab) Discharge to [facility] for PT (2) Parkinson disease: Continue Sinemet, Comtan, Azilect Amantadine has been tapered off Consult neurology (3) Visual hallucinations: Concerning for amantadine side effect given sudden onset with starting this medication - weaning as above (4) BPH (benign prostatic hyperplasia): Continue tamsulosin and finasteride (5) HTN (hypertension): Son-in-law mentioned some orthostasis Will therefore continue enalapril 20mg PO BID and hold his amlodipine (6) Osteoarthritis of left hip: Noted on no chronic medications for this. VTE Prophylaxis - low risk, deferred Diet - regular Disposition - admit to med/surg Total Time Total Time Spent Total Time Spent (In Minutes): 35 Discharge Plan Discharge Items Patient Disposition: Transfer Inpatient Rehab Fac Reason For Visit: RECURRENT FALLS Discharge Diagnosis: metabolic encephalopathy Activity: Resume your previous activity Non-emergency contact: Primary Care Provider and Neurologist Call non-emergency contact if: you have any medication questions Follow-up/Referrals: Javier Londono MD [Primary Care Provider] - Diet: Regular Addtl Attending Provider Instructions: please make appointment to follow up with your neurologist in 2 weeks. Pending Studies at Discharge: No Stand-Alone Forms: My [facility] Skilled Items Patient informed of condition?: No DNR: No Discharge Level of Care: Acute rehab Communicable Disease: No Discharge Prognosis: Improving Lines: None Urinary Catheter: No Medications and DC Order Prescriptions: New amantadine HCl 100 mg capsule 100 mg PO BID 1 Days Qty: 2 RF: 0 amantadine HCl 100 mg capsule 100 mg PO DAILY 3 Days Qty: 3 RF: 0 Continued enalapril maleate 20 mg Tablet 20 mg PO BID RF: 0 amlodipine [Norvasc] 5 mg Tablet 5 mg PO QAM RF: 0 simvastatin [Zocor] 40 mg Tablet 20 mg PO Q OTHER DAY RF: 0 tamsulosin [Flomax] 0.4 mg Capsule 0.4 mg PO PM RF: 0 finasteride 5 mg Tablet 5 mg PO QAM RF: 0 entacapone [Comtan] 200 mg Tablet 200 mg PO QID RF: 0 carbidopa-levodopa 25-100 mg Tablet 2 tab PO QID RF: 0 rasagiline [Azilect] 1 mg Tablet 1 mg PO DAILY RF: 0 Discontinued amantadine HCl 100 mg tablet 100 mg PO TID RF: 0 Discharge Orders: Discharge Order (Routine); Ordered 10/15/21 Ordered By: Faina Jaimes Admission Data Admit Date/Time: 10/13/21 17:42 Attending Provider: Faina Jaimes Admit Provider: Prateek Kaiser Primary Care Provider: Javier Londono Other Providers: Prateek Kaiser ; Ronnie Pearson ; [facility] Other Interventions: Discharge Summary Assessment (RN) Last Done: 10/15/21 12:23 Coding Level of Care Code D/C DAY MANAGEMENT >30 MINS Diagnoses Recurrent falls R29.6 Parkinson disease G20 Visual hallucinations R44.1 BPH (benign prostatic hyperplasia) N40.0 HTN (hypertension) I10 Osteoarthritis of left hip M16.12 Time Spent (min) 35
[2021-10-17] MEDS ORDERED: AMANTADINE HCL 100 MG CAPSULE PO SCH (09:00)
== END 2021-10-15 16:47 | DRG 93 ==
LOC: ED 15:16 → SUATTDRO 17:42 → 3N 17:42

== ENCOUNTER 2024-08-10 12:13 | Inpatient (IN) ==
--- NOTE | 2024-08-10 12:45 | XRay Report ---
XR chest 1V portable CLINICAL HISTORY: Chest pain, nonspecific COMPARISON STUDY: 10/13/2021 FINDINGS: Heart size and pulmonary vasculature are normal. No effusion, consolidation, or pneumothora x. IMPRESSION: No acute findings. ACT 112: Negative or not required by law. Electronically signed by: Viktor Slaughter M.D. 08/10/2024 12:44 PM
[2024-08-10 13:09] LABS: Anion Gap 3 (3-11); BUN Creatinine Ratio 20.8 (10-20); Blood Urea Nitrogen 21 mg/dl (6-23); Calcium 8.9 mg/dl (8.6-10.3); Carbon Dioxide 29 mmol/L (21-32); Chloride 108 mmol/L (98-107); Creatinine Clr Calc Pharmacy 46.4 ml/min; Glucose 100 mg/dl (70-99(Fasting)); Potassium 4.7 mmol/L (3.5-5.1); Sodium 140 mmol/L (136-145)
[2024-08-10 13:11] LABS: Mean Corpuscular Hemoglobin 32.7 pg (25.0-34.0); Mean Corpuscular Hgb Conc 33.3 g/dL (32.0-36.0); Mean Corpuscular Volume 98.2 fL (80.0-100.0); Mean Platelet Volume 11.1 fL (9.4-12.4); Platelet Count 90 K/uL (130-400); RDW Coefficient of Variation 13.3 % (11.5-14.5); RDW Standard Deviation 47.6 fL (36.4-46.3); Red Blood Count 3.97 M/uL (4.70-6.10); White Blood Count 9.25 K/ul (4.8-10.8)
[2024-08-10 13:12] LABS: Basophils # (auto) 0.01 K/uL (0.00-0.20); Basophils % (auto) 0.1 %; Eosinophils # (auto) 0.03 K/uL (0.00-0.50); Eosinophils % (auto) 0.3 %; Immature Granulocytes # (auto) 0.04 K/uL (0.01-0.20); Immature Granulocytes % (auto) 0.4 %; Lymphocytes # (auto) 0.68 K/uL (1.20-3.40); Lymphocytes % (auto) 7.4 %; Monocytes # (auto) 0.65 K/uL (0.11-0.59); Neutrophils # (auto) 7.84 K/uL (1.40-6.50); Neutrophils % (auto) 84.8 %
[2024-08-10 13:15] LABS: Troponin I High Sensitivity 5.8 pg/ml (0-20)
[2024-08-10 13:21] LABS: INR 1.1 (0.9-1.1); Prothrombin Time 11.7 Seconds (9.0-12.0)
[2024-08-10 13:25] LABS: Alanine Aminotransferase < 3 U/L (7-52); Albumin Globulin Ratio 1.6 (0.9-2); Albumin Level 4.3 gm/dl (3.4-5.0); Alkaline Phosphatase 79 U/L (34-104); Aspartate Aminotransferase 10 U/L (13-39); Bilirubin,Total 0.7 mg/dl (0.2-1.0); Globulin 2.7 gm/dl (2.5-4.0)
[2024-08-10 13:33] LABS: Lipase 680 U/L (11-82)
--- NOTE | 2024-08-10 13:34 | Emergency Department Note ---
Impression & Plan Abdominal pain, acute, epigastric, Acute on chronic pancreatitis, Elevated lipase ED Provider Note HISTORY OF PRESENT ILLNESS: Patient is an 89-year-old male presenting with chest pain. Patient reports that he has been having pain across his upper chest "from 1 breast to the other" for the last 2 to 3 days. States that pain has been constant since onset. He does state he took 1000 mg of Tylenol at his facility and that seemed to ease the pain slightly. However, the pain has persisted. He denies any shortness of breath, nausea or vomiting with the pain. He denies any history of cardiac stents. Denies any recent fevers. Denies any abdominal pain, nausea or vomiting. Denies any DVT or PE history. Denies any history of cardiac stents. He is not on any anticoagulation or antiplatelet therapy. ROS: as above PHYSICAL EXAM: Constitutional: Patient appears in no acute distress. HENT: Head: Normocephalic and atraumatic. Eyes: EOMI, PERRL Mouth/Throat: Mucous membranes moist. Neck: Trachea midline. Neck supple. Cardiovascular: Bradycardic with regular rhythm. No murmurs, rubs or gallops. Intact distal pulses. Pulmonary/Chest: No respiratory distress. Breath sounds clear and equal bilaterally. No wheezes or rales. No chest wall tenderness to palpation. Abdominal: Abdomen soft, no rebound or guarding. Epigastric TTP Musculoskeletal: No edema, tenderness or deformity noted. Skin: Warm and dry. No rash, erythema, pallor or cyanosis Psychiatric: Appropriate mood and affect for situation. Neurological: Alert and keenly responsive. CN II-XII grossly intact, moving all extremities equally and fully. MDM: - Vitals signs showed bradycardia - History obtained via patient. History as above. - Chronic conditions affecting care: HTN; BPH; Parkinson's disease; HLD - Differential diagnoses include, but are not limited to: Acute coronary syndrome; pulmonary embolism; dissection; tension pneumothorax; esophageal rupture; pneumonia - Order placed for continuous cardiac monitoring. At this time, monitor showed rate of 60 bpm with normal sinus rhythm, per my interpretation. - External medical records reviewed. Express care note dated 01/14/2024 was reviewed. Patient was seen acutely for left ear pain and left facial swelling. - EKG image interpreted by myself showed normal sinus rhythm. Rate 60 bpm. QT 410. No acute ischemic changes. - Laboratory workup interpreted by myself showed normal WBC; normal PT/INR; stable electrolytes; normal AST/ALT; normal total bilirubin level; elevated lipase (680); normal troponin - UA negative for infection, but noted to have trace ketones - CXR image reviewed by myself is negative for pneumonia, per my interpretation. - CT abdomen/pelvis with IV contrast showed mild. Pancreatic stranding suggestive of acute pancreatitis without any peripancreatic fluid collections. Noted to have some parenchymal calcifications in the pancreas concerning for chronic pancreatitis. 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 - Patient initially did not want any pain medication while in the emergency department. However, on discussion of results and per plan of care, he was stating he would be willing to take a pain medication that "would not cause me to be really constipated." He was given 1 g IV Tylenol. Given a total of 1500 cc of fluid in the emergency department. - Discussion was had with special education case manager about patient's case and need for admission - Hospitalist consulted for admission [facility] ASSESSMENT AND PLAN: Diagnosis: Epigastric abdominal pain; acute on chronic pancreatitis; elevated lipase Plan: Admit Past Med/Surg History Problem List (Updated 08/10/24 @ 15:29 by Roseanne Hopper MD) Elevated lipase (Acute) Acute on chronic pancreatitis (Acute) Abdominal pain, acute, epigastric (Acute) Dyskinesia Shoulder weakness Gait disturbance Tremor Memory deficits Parkinson disease Stable- tremor, mild rigidity, balance issues- Follows with neurology = [facility] Visual hallucinations Osteoarthritis of left hip Recurrent falls HTN (hypertension) BPH (benign prostatic hyperplasia) Status post total right knee replacement using cement Encounter for pre-operative examination Medical History Urinary incontinence, urge Constipation Hearing deficit Hyperlipemia Thrombocytopenia Surgical History Slow to wake up after anesthesia History of appendectomy History of bursectomy History of lumbar surgery History of colonoscopy History of colon resection Family History Mother Non Hodgkin's lymphoma Father CHF (congestive heart failure) Other No family history of adverse response to anesthesia Social History Smoking Status: Never smoker Tobacco Type: Pipe Second Hand Exposure: No; Do You Dip or Chew Tobacco: No; Hx Alcohol Use: Yes Alcohol type: wine Alcohol Intake Frequency: Monthly or Less Hx Substance Use: No Preferred Language: Andorran Communication Ability: Effective Parent Educator Required: No Beliefs That Will Affect Care: None marital status: / Current Living Situation: Alone Current Living Situation Comment: 3 Daughters one at the house at all time current occupational status: retired 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 Feels Safe at Home: Yes Assistive Devices: Cane, Hearing Aid - Right and Walker Allergies Allergies Allergy/AdvReac Type Severity Reaction Status Date / Time No Known Allergies Allergy Verified 05/18/24 10:58 Home Meds Home Medications Medication Instructions Recorded Confirmed finasteride 5 mg tablet 5 mg PO QAM 05/05/19 05/18/24 tamsulosin 0.4 mg capsule (Flomax) 0.4 mg PO PM 05/05/19 05/18/24 acetaminophen 325 mg tablet 650 mg PO Q4H PRN 10/23/21 05/18/24 lisinopril 20 mg tablet 20 mg PO BID 10/23/21 05/18/24 polyethylene glycol 3350 17 gram 17 g PO DAILY 07/25/22 05/18/24 oral powder packet (Miralax) simvastatin 40 mg tablet (Zocor) 10 mg PO DAILY 03/12/23 05/18/24 Previous Rx's Medication Instructions Recorded azithromycin 250 mg tablet See Rx Instructions PO .COMPLEX #6 01/14/24 tabs carbidopa 37.5 mg-levodopa 150 1 tab PO 6XD 90 days #540 tabs 07/21/24 mg-entacapone 200 mg tablet rotigotine 2 mg/24 hour 2 mg transdermal DAILY #30 ea 08/04/24 transdermal 24 hour patch (Neupro) rasagiline 1 mg tablet (Azilect) 1 mg PO DAILY 90 days #90 tabs 08/06/24 Results & Data (ED) Vital Signs Vital Signs - 24 hr 08/10/24 12:16 08/10/24 12:26 08/10/24 12:30 Temperature 36.1 C L Temperature Source Temporal Artery Scan Pulse Rate 89 57 L Pulse Rate [Apical] Pulse Strength Normal Respiratory Rate 16 Respiratory Effort / Characteristics Non-Labored Spontaneous Respiratory Depth Normal Respiratory Pattern Regular Blood Pressure 126/74 Blood Pressure [Left Arm] Blood Pressure Mean 91 Blood Pressure Mean [Left Arm] Blood Pressure Position Sitting Blood Pressure Position [Left Arm] Pulse Oximetry 96 96 Oxygen Delivery Method Room Air Room Air Sepsis Recent Fever Within 48 Hours No Sepsis New/Unexplained Change in Mental Status No Sepsis Action Taken by Nursing No Action Required 08/10/24 12:30 08/10/24 12:49 08/10/24 14:00 Temperature Temperature Source Pulse Rate Pulse Rate [Apical] 56 L 53 L Pulse Strength Respiratory Rate 20 23 Respiratory Effort / Characteristics Respiratory Depth Respiratory Pattern Blood Pressure Blood Pressure [Left Arm] 158/88 H Blood Pressure Mean Blood Pressure Mean [Left Arm] 111 Blood Pressure Position Blood Pressure Position [Left Arm] Pulse Oximetry 97 97 97 Oxygen Delivery Method Room Air Room Air Room Air Sepsis Recent Fever Within 48 Hours Sepsis New/Unexplained Change in Mental Status Sepsis Action Taken by Nursing 08/10/24 14:50 08/10/24 15:01 Temperature Temperature Source Pulse Rate Pulse Rate [Apical] 59 L 61 Pulse Strength Respiratory Rate 23 24 Respiratory Effort / Characteristics Non-Labored Spontaneous Non-Labored Spontaneous Respiratory Depth Normal Normal Respiratory Pattern Blood Pressure Blood Pressure [Left Arm] 195/100 H 168/88 H Blood Pressure Mean Blood Pressure Mean [Left Arm] 131 114 Blood Pressure Position Blood Pressure Position [Left Arm] Semi-fowlers Semi-fowlers Pulse Oximetry 98 98 Oxygen Delivery Method Room Air Room Air Sepsis Recent Fever Within 48 Hours Sepsis New/Unexplained Change in Mental Status Sepsis Action Taken by Nursing Laboratory Data 08/10/24 12:30 08/10/24 12:30 Lab Results 08/10/24 08/10/24 Range/Units 12:30 14:27 WBC 9.25 (4.8-10.8) K/ul RBC 3.97 L (4.70-6.10) M/uL Hgb 13.0 L (14.0-18.0) g/dl Hct 39.0 L (42.0-52.0) % MCV 98.2 (80.0-100.0) fL MCH 32.7 (25.0-34.0) pg MCHC 33.3 (32.0-36.0) g/dL RDW Std Deviation 47.6 H (36.4-46.3) fL RDW Coeff of Jessenia 13.3 (11.5-14.5) % Plt Count 90 L (130-400) K/uL MPV 11.1 (9.4-12.4) fL Immature Gran % (Auto) 0.4 % Neut % (Auto) 84.8 % Lymph % (Auto) 7.4 % Mchenry % (Auto) 7.0 % Eos % (Auto) 0.3 % Baso % (Auto) 0.1 % Neut # (Auto) 7.84 H (1.40-6.50) K/uL Lymph # (Auto) 0.68 L (1.20-3.40) K/uL Mchenry # (Auto) 0.65 H (0.11-0.59) K/uL Eos # (Auto) 0.03 (0.00-0.50) K/uL Baso # (Auto) 0.01 (0.00-0.20) K/uL Immature Gran # (Auto) 0.04 (0.01-0.20) K/uL PT 11.7 (9.0-12.0) Seconds INR 1.1 (0.9-1.1) Sodium 140 (136-145) mmol/L Potassium 4.7 (3.5-5.1) mmol/L Chloride 108 H (98-107) mmol/L Carbon Dioxide 29 (21-32) mmol/L Anion Gap 3 (3-11) BUN 21 (6-23) mg/dl Creatinine 1.01 (0.6-1.4) mg/dl Est Cr Clr Drug Dosing 46.4 ml/min eGFR 71.09 BUN/Creatinine Ratio 20.8 H (10-20) Glucose 100 H (70-99(Fasting)) mg/dl Calcium 8.9 (8.6-10.3) mg/dl Total Bilirubin 0.7 (0.2-1.0) mg/dl AST 10 L (13-39) U/L ALT < 3 L (7-52) U/L Alkaline Phosphatase 79 (34-104) U/L Troponin I High Sens 5.8 (0-20) pg/ml Total Protein 7.0 (6.0-8.3) gm/dl Albumin 4.3 (3.4-5.0) gm/dl Globulin 2.7 (2.5-4.0) gm/dl Albumin/Globulin Ratio 1.6 (0.9-2) Lipase 680 H (11-82) U/L Urine Color Dark Yellow Urine Appearance Clear (Clear) Urine pH 7.0 (4.5-7.5) Ur Specific [place] 1.028 (1.000-1.030) Urine Protein Negative (Negative) Urine Glucose (UA) Negative (Negative) Urine Ketones Trace H (Negative) Urine Blood Negative (Negative) Urine Nitrite Negative (Negative) Urine Bilirubin Negative (Negative) Urine Urobilinogen Negative (Negative) Ur Leukocyte Esterase Negative (Negative) Administered Medications Discontinued Medications Sodium Chloride (Nss) 1,000 mls @ 999 mls/hr IV .Q1H1M STA Stop: 08/10/24 15:07 Last Admin: 08/10/24 14:16 Dose: 999 mls/hr Documented By: ZAYRA Ioversol (Optiray 320 100ml) 93 ml IV ONCE ONE Stop: 08/10/24 13:46 Last Admin: 08/10/24 13:45 Dose: 93 ml Documented By: SUJIT Imaging Data Radiologist's Impression: Chest X-Ray 08/10/24 12:23 XR chest 1V portable CLINICAL HISTORY: Chest pain, nonspecific COMPARISON STUDY: 10/13/2021 FINDINGS: Heart size and pulmonary vasculature are normal. No effusion, consolidation, or pneumothorax. IMPRESSION: No acute findings. ACT 112: Negative or not required by law. Electronically signed by: Viktor Slaughter M.D. 08/10/2024 12:44 PM Abdomen/Pelvis CT 08/10/24 13:35 CT SCAN OF THE ABDOMEN AND PELVIS WITH IV CONTRAST CLINICAL HISTORY: Upper abdominal pain. COMPARISON STUDY: None. TECHNIQUE: Following the IV administration of 93 cc of Optiray 320, CT scan of the abdomen and pelvis is performed from the lung bases to the proximal femora. Images are reviewed in the axial, sagittal, and coronal planes. IV contrast was administered without complication. A dose lowering technique was utilized adhering to the principles of ALARA. CT DOSE: 993.89 mGy.cm FINDINGS: Lung bases: The heart is moderately enlarged. There is no pericardial effusion. The lung bases are clear. Liver: The liver morphology is normal. Several hypodense hepatic lesions favor cysts. There is no intrahepatic biliary ductal dilatation. The hepatic veins and portal veins are patent. Gallbladder: Unremarkable. Spleen: The spleen is mildly enlarged. Pancreas: There are pancreatic parenchymal calcifications. No pancreatic ductal dilatation is present. A cystic 1.4 cm lesion within the pancreatic head is noted. There is mild stranding adjacent to the pancreatic tail as well as the pancreatic head and uncinate process and the second and third portions of the duodenum. Mild pancreatic glandular atrophy is present. There are no peripancreatic fluid collections. Adrenal glands: Unremarkable. Kidneys: Attenuation bilateral renal lesions represent cysts. There are no solid renal lesions. There is no hydronephrosis. Abdominal vasculature: The caliber of the abdominal aorta is normal. Major vasculature is patent. Moderate atherosclerotic plaque within the abdominal aorta. Bowel: The caliber and wall thickness of small and large bowel are normal. Peritoneum: There is no intraperitoneal free air or abdominal ascites. Lymphadenopathy: None. Skeletal structures: No lytic or blastic lesions are seen. Pelvic viscera: The prostate is moderately enlarged, measuring 5.6 cm in transverse diameter. IMPRESSION: 1. Mild peripancreatic stranding suggestive of acute pancreatitis. No peripancreatic fluid collections. 2. Pancreatic parenchymal calcifications suggestive of chronic pancreatitis. 3. No biliary ductal dilatation. 4. 1.4 cm cystic lesion within the pancreatic head. This favors a side branch IPMN. 5. Enlarged prostate. ACT 112: Negative or not required by law. Electronically signed by: Shankar Baker M.D. 08/10/2024 2:01 PM Discharge Plan Visit Data Chief Complaint: Cardiac Assessment Stated Complaint: CHEST DISCOMFORT, HIGH BP ED Provider: Roseanne Hopper Discharge Problem: Abdominal pain, acute, epigastric, Acute on chronic pancreatitis, Elevated lipase Condition: Fair Forms Stand Alone Forms: My [facility] Prescriptions Prescriptions: No Action [id number]-[id number] 37.5-150-200 mg tablet 1 tab PO 6XD 90 Days Qty: 540 3RF Neupro 2 mg/24 hour patch 24 hour 2 mg transdermal DAILY Qty: 30 5RF Rx Instructions: Change patch every 24 hours. Rotate sites. Hold hand upon patch for 30 seconds to activate. rasagiline [Azilect] 1 mg tablet 1 mg PO DAILY 90 Days Qty: 90 3RF lisinopril 20 mg tablet 20 mg PO BID acetaminophen 325 mg tablet 650 mg PO Q4H PRN polyethylene glycol 3350 [Miralax] 17 gram powder in packet 17 g PO DAILY azithromycin 250 mg tablet See Rx Instructions PO .COMPLEX Qty: 6 0RF Rx Instructions: For 250 mg dose pack: take 500 mg today (day 1), then 250 mg for 4 days (days 2-5) PO tamsulosin [Flomax] 0.4 mg Capsule 0.4 mg PO PM finasteride 5 mg Tablet 5 mg PO QAM simvastatin [Zocor] 40 mg tablet 10 mg PO DAILY Rx Instructions: takes in the pm Referrals Referrals: Melvin Castaneda [Primary Care Provider] -
[2024-08-10] MEDS: OPTIRAY 320 100ml IV ONE (13:45)
--- NOTE | 2024-08-10 14:02 | CT Scan Report ---
CT SCAN OF THE ABDOMEN AND PELVIS WITH IV CONTRAST CLINICAL HISTORY: Upper abdominal pain. COMPARISON STUDY: None. TECHNIQUE: Following the IV administration of 93 cc of Optiray 320, CT scan of the abdomen and pelvi s is performed from the lung bases to the proximal femora. Images are reviewed in the axial, sagittal , and coronal planes. IV contrast was administered without complication. A dose lowering technique wa s utilized adhering to the principles of ALARA. CT DOSE: 993.89 mGy.cm FINDINGS: Lung bases: The heart is moderately enlarged. There is no pericardial effusion. The lung bases are cl ear. Liver: The liver morphology is normal. Several hypodense hepatic lesions favor cysts. There is no int rahepatic biliary ductal dilatation. The hepatic veins and portal veins are patent. Gallbladder: Unremarkable. Spleen: The spleen is mildly enlarged. Pancreas: There are pancreatic parenchymal calcifications. No pancreatic ductal dilatation is present . A cystic 1.4 cm lesion within the pancreatic head is noted. There is mild stranding adjacent to the pancreatic tail as well as the pancreatic head and uncinate process and the second and third portion s of the duodenum. Mild pancreatic glandular atrophy is present. There are no peripancreatic fluid co llections. Adrenal glands: Unremarkable. Kidneys: Attenuation bilateral renal lesions represent cysts. There are no solid renal lesions. There is no hydronephrosis. Abdominal vasculature: The caliber of the abdominal aorta is normal. Major vasculature is patent. Mod erate atherosclerotic plaque within the abdominal aorta. Bowel: The caliber and wall thickness of small and large bowel are normal. Peritoneum: There is no intraperitoneal free air or abdominal ascites. Lymphadenopathy: None. Skeletal structures: No lytic or blastic lesions are seen. Pelvic viscera: The prostate is moderately enlarged, measuring 5.6 cm in transverse diameter. IMPRESSION: 1. Mild peripancreatic stranding suggestive of acute pancreatitis. No peripancreatic fluid collection s. 2. Pancreatic parenchymal calcifications suggestive of chronic pancreatitis. 3. No biliary ductal dilatation. 4. 1.4 cm cystic lesion within the pancreatic head. This favors a side branch IPMN. 5. Enlarged prostate. ACT 112: Negative or not required by law. Electronically signed by: Shankar Baker M.D. 08/10/2024 2:01 PM
[2024-08-10] MEDS: SODIUM CHLORIDE 0.9% 1,000 ML IV STA (14:16)
[2024-08-10 14:46] LABS: Appearance Urine Clear (Clear); Bilirubin Urine Negative (Negative); Blood Urine Negative (Negative); Color Urine Dark Yellow; Glucose Urine UA Negative (Negative); Ketones Urine Trace (Negative); Leukocyte Esterase Urine Negative (Negative); Nitrite Urine Negative (Negative); Protein Urine Negative (Negative); Specific Gravity Urine 1.028 (1.000-1.030); Urobilinogen Urine Negative (Negative)
[2024-08-10] MEDS: ACETAMINOPHEN 1,000 MG/100 ML VIAL IV STA (15:29)
[2024-08-10] MEDS: SODIUM CHLORIDE 0.9% 500 ML IV ONE (15:30)
--- NOTE | 2024-08-10 16:13 | History & Physical Report ---
Date of Service August 10, 2024 Assessment & Plan (1) Acute on chronic pancreatitis: (2) Parkinson disease: (3) HTN (hypertension): (4) BPH (benign prostatic hyperplasia): Plan 89-year-old male who presented with chest pain found to have acute on chronic pancreatitis with possible IPMN seen on imaging. Patient suffers from Parkinson's disease, hypertension, BPH. He wishes avoid or limit opiate medications as he also has significant constipation #Pancreatitis patient will be n.p.o. except chips and sips. Hydrated with lactated Ringer's with use of Toradol and Tylenol for pain. Patient will have lipase is trended. May benefit from following up with GI medicine as an outpati ent for his IPMN. given some epigastric component will add pepcid iv #Hypertension patient's medications will be held due to his n.p.o. status he will be given enalaprilat T with backup hydralazine as needed #Parkinson disease patient will continue his Parkinson's meds with a small sip of water #BPH patient has his prostate medications currently on hold scd for dvt prevention given low platelet count History of Present Illness Primary Care Provider: Melvin Castaneda Patient is an 89-year-old male presenting with chest pain. Patient reports that he has been having pain across his upper chest "from 1 breast to the other" for the last 2 to 3 days. States that pain has been constant since onset. He does state he took 1000 mg of Tylenol at his facility and that seemed to ease the pain slightly. However, the pain has persisted. He denies any shortness of breath, nausea or vomiting with the pain. He denies any history of cardiac stents. Denies any recent fevers. Denies any abdominal pain, nausea or vomiting. Denies any DVT or PE history. Denies any history of cardiac stents. He is not on any anticoagulation or antiplatelet therapy Initial troponin was negative, EKG shows sinus rhythm with first-degree block no acute current of injury or infarct. Elevated lipase on serology with confirmation acute on chronic pancreatitis with possible IPMN seen on CT scan Patient admitted for pancreatitis Allergies Allergy/AdvReac Type Severity Reaction Status Date / Time No Known Allergies Allergy Verified 05/18/24 10:58 Home Medications Medication Instructions Recorded Confirmed Type finasteride 5 mg tablet 5 mg PO QAM 05/05/19 08/10/24 History tamsulosin 0.4 mg capsule (Flomax) 0.4 mg PO PM 05/05/19 08/10/24 History polyethylene glycol 3350 17 gram 17 g PO DAILY 07/25/22 08/10/24 History oral powder packet (Miralax) carbidopa 37.5 mg-levodopa 150 1 tab PO 6XD 08/10/24 08/10/24 History mg-entacapone 200 mg tablet enalapril maleate 20 mg tablet 20 mg PO BID 08/10/24 08/10/24 History rasagiline 1 mg tablet (Azilect) 1 mg PO QAM 08/10/24 08/10/24 History simvastatin 20 mg tablet 20 mg PO DAILY 08/10/24 08/10/24 History Past Med/Surg History Problem List (Updated 08/10/24 @ 15:29 by Roseanne Hopper MD) Elevated lipase (Acute) Acute on chronic pancreatitis (Acute) Abdominal pain, acute, epigastric (Acute) Dyskinesia Shoulder weakness Gait disturbance Tremor Memory deficits Parkinson disease Stable- tremor, mild rigidity, balance issues- Follows with neurology = [facility] Visual hallucinations Osteoarthritis of left hip Recurrent falls HTN (hypertension) BPH (benign prostatic hyperplasia) Status post total right knee replacement using cement Encounter for pre-operative examination Medical History Urinary incontinence, urge Constipation Hearing deficit Hyperlipemia Thrombocytopenia Surgical History Slow to wake up after anesthesia History of appendectomy History of bursectomy History of lumbar surgery History of colonoscopy History of colon resection Family History Mother Non Hodgkin's lymphoma Father CHF (congestive heart failure) Other No family history of adverse response to anesthesia Social History Smoking Status: Never smoker Tobacco Type: Pipe Second Hand Exposure: No; Do You Dip or Chew Tobacco: No; Hx Alcohol Use: Yes Alcohol type: wine Alcohol Intake Frequency: Monthly or Less Hx Substance Use: No Preferred Language: Chinese Communication Ability: Effective Rn Psychiatric Required: No Beliefs That Will Affect Care: None marital status: / Current Living Situation: Alone Current Living Situation Comment: 3 Daughters one at the house at all time current occupational status: retired 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 Feels Safe at Home: Yes Assistive Devices: Cane, Hearing Aid - Right and Walker Review of Systems Review of Systems: Mild distress and fatigue no headache, no visual changes no speech or swallowing issues no chest pain, pressure or palpitations no shortness of breath, cough or wheezes epigastric abd pain radiation to both sides below ribs and some left infrascapular pain no dysuria, hematuria or frequency no focal joint pain or swelling no back pain, CVA tenderness or radicular pain no bruising, bleeding or rashes no focal signs of weakness or numbness or altered sensation no complaints of anxiety or depression.. Physical Exam Physical Exam: The patient appeared well nourished and normally developed. Vital signs as documented. Head exam is normocephalic atraumatic Neck is without JVD, thyromegaly, or carotid bruits. Lungs are clear to auscultation, no focal loss of breath sounds Cardiac exam, Rhythm is regular.. No murmurs, rubs or gallops. Abdominal exam reveals normal bowel sounds, soft reproducible epigstric tenderness Extremities are nonedematous and both pedal pulses are present Neurologic exam is alert and oriented, no focal loss of strength or sensation has movement disorder consistent with parkinsons disease Skin is without bruises or rashes Psychologically is without concerns for anxiety or depression.. Results & Data Results & Data Vital Signs (Past 12 Hours) Vital Signs Temp Pulse Pulse Resp BP BP Pulse Ox 08/10/24 15:01 61 24 168/88 H 98 08/10/24 14:50 59 L 23 195/100 H 98 08/10/24 14:00 53 L 23 97 08/10/24 12:49 97 08/10/24 12:30 56 L 20 158/88 H 97 08/10/24 12:30 96 08/10/24 12:26 57 L 08/10/24 12:16 97.0 F L 89 16 126/74 96 O2 Del Method 08/10/24 15:01 Room Air 08/10/24 14:50 Room Air 08/10/24 14:00 Room Air 08/10/24 12:49 Room Air 08/10/24 12:30 Room Air 08/10/24 12:30 Room Air 08/10/24 12:26 08/10/24 12:16 Room Air Code Status & VTE Plan VTE Prophylaxis Plan VTE Prophylaxis will be ordered: Yes PG Care Time/CCT Total # of Minutes Spent Total Time Spent with Patient: Total time spent is greater than 50% in coordination of care (as documented) at patient's floor/unit and/or counseling patient: Coding Level of Care Code 39887 INT INP/OBS CARE 3/75MIN Diagnoses Acute on chronic pancreatitis K85.90; K86.1 Parkinson disease G20 HTN (hypertension) I10 BPH (benign prostatic hyperplasia) N40.0
[2024-08-10] MEDS ORDERED: HYDROmorphone INJ 0.5 MG/0.5 ML SYR IV PRN (16:24)
--- OUTSIDE RECORDS SUMMARY | 2024-08-10 17:27 | External Medical Summary | Continuity of Care Document ---
Author Name Unknown Organization [place] [address] [address] [place] [address] [phone] Care Team Providers Care Palliative Care Physician Name Role Phone Javier Londono Primary Care Physician [phone] Encounter [facility] [id number] Date(s): 05/29/24 - 05/29/24 [facility] [address] [facility] [address] [address] [facility] [phone] Encounter Diagnosis Gout, unspecified(Final) - Pure hypercholesterolemia, unspecified(Final) - Essential (primary) hypertension(Final) - Unilateral primary osteoarthritis, left hip(Final) - Other reduced mobility(Final) - Parkinson's disease without dyskinesia, without mention of fluctuations(Final) - Carpal tunnel syndrome, left upper limb(Final) - Impacted cerumen, unspecified ear(Final) - Encounter for general adult medical examination without abnormal findings(Final) - Thrombocytopenia, unspecified(Final) - CKD (chronic kidney disease)(Discharge Diagnosis) - 05/29/24 Cerumen impaction(Discharge Diagnosis) - 05/29/24 Hypercholesterolemia(Discharge Diagnosis) - 05/29/24 Osteoarthritis of left hip(Discharge Diagnosis) - 05/29/24 Impaired functional mobility, balance, gait, and endurance(Discharge Diagnosis) - 05/29/24 Left carpal tunnel syndrome(Discharge Diagnosis) - 05/29/24 Gout(Discharge Diagnosis) - 05/29/24 Hypertension(Discharge Diagnosis) - 05/29/24 Parkinson disease(Discharge Diagnosis) - 05/29/24 Health care maintenance(Discharge Diagnosis) - 05/29/24 Thrombocytopenia(Discharge Diagnosis) - 05/29/24 Chronic kidney disease, unspecified(Final) - Discharge Disposition: Home or Self Care Attending Physician: MD Castaneda Michael P Encounter Type: Clinic Allergies, Adverse Reactions, Alerts No Known Allergies Assessment and Plan Extracted from: Title:Office Visit Note Author:MD Tonya, Cipriano Arias Date:05/29/24 1. CKD (chronic kidney dise ase) STATUS: [X= specifies status] Previous visit: Assess current status with CMP -Chronic- NOT at goal: X -Chronic- progressive: -Acute NEW DX: DATA: Labs/Tests reviewed. GFR= 45 GOAL: Maintain/improve stability. PLAN: Continue current monitoring. BMP now and in 3 mos. Consider Nephrology if CKD progresses. . CKD Staging Stg 1 GFR >= 90 (NORMAL) Stg 2 GFR 60-89 (MILD) Stg 3a GFR 45-59 (MILD-MOD) Stg 3b GFR= 30-44 (MOD-SEVERE) Stg 4 GFR = 15-29 (SEVERE) Stg 5 GFR = <15 (RENAL FAILURE) 2. Gout STATUS: [X= specifies status] Previous visit: Last flare up 1 month after hit toe. He uses Colchicine PRN -Chronic- NOt at goal: X -Chronic- progressive: -Acute NEW DX: DATA: Labs/Tests reviewed. Uric acid+ GOAL: Maintain/improve stability. PLAN: Continue current monitoring. High-Purine Foods: Organ meats (liver, kidney, sweetbreads) Red meat (beef, barber, pork) Seafood (shellfish, tuna, sardines) Yeast extract (Marmite, Vegemite) Processed meats (hot dogs, sausages) Other Foods That May Trigger Gout: Alcohol (especially beer and hard liquor) Sugary drinks and foods Fructose (found in fruits, juices, and processed foods) Certain vegetables (e.g., asparagus, spinach) . 3. Hypercholesterolemia STATUS: [X= specifies status] Previous visit: He runs elevated lipids but has been controlled on Simvastatin 20 mg daily. -Chronic- at goal: X -Chronic- progressive: -Acute NEW DX: DATA: Labs/Tests reviewed. GOAL: Maintain/improve stability. LDL= 68; HDL = 39 PLAN: Continue current monitoring. LIPIDS in FEB 2025 . 4. Hypertension STATUS: [X= specifies status] Previous visit: BP at home runs 120-130 / 60-70 Week 1: Move the enalapril PM dose to bedtime (8pm) instead of 5:30 Week 2: Move the Norvasc 5 mg to 8 pm from 5:30 to get most BP meds to bedtime Week 3: Move Flomax from 3 pm to 9:30 am -Chronic- at goal: X -Chronic- progressive: -Acute NEW DX: DATA: Labs/Tests reviewed. BP= 118/68 today and at home 118-125/ 70 GOAL: Maintain/improve stability. PLAN: Continue current monitoring. Due to low BP he went off the Norvasc. Flow with Flomax = slightly better. IN future if the GFR is dropping could recude the Vasotec and resume Norvasc 5 mg . . 5. Osteoarthritis of left hip STATUS: [X= specifies status] Previous visit: Hx of diffuse OA knees, hip, hands. No meds. 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 Overall an ongoing issue with OA. He does have Voltaren to use prn---infrequently -Chronic- at goal: X -Chronic- progressive: -Acute NEW DX: DATA: Labs/Tests reviewed. GOAL: Maintain/improve stability. PLAN: Continue current monitoring. Dicussed using the VOltaren gel . 6. Impaired functional mobility, balance, gait, and endurance STATUS: [X= specifies status] Previous visit: HX Parkinson's x 2003. Sees Dr. Michel Blake 6 mos . Manages on 7 x a day Stelevo ---works well -Chronic- at goal: X -Chronic- progressive: -Acute NEW DX: DATA: Labs/Tests reviewed. GOAL: Maintain/improve stability. PLAN: Continue current monitoring. FU NEURO or PA-C Q 6 mos . 7. Parkinson disease STATUS: [X= specifies status] Previous visit: HX Parkinsons x 2003. Sees Dr. Michel Blake 6 mos . Manages on 7 x a day Stelevo ---works well -Chronic- at goal: X -Chronic- progressive: -Acute NEW DX: DATA: Labs/Tests reviewed. GOAL: Maintain/improve stability. PLAN: Continue current monitoring. FU NEURO Q 6 mos . 8. Left carpal tunnel syndrome STATUS: [X= specifies status] Previous visit: Use cock up splints prn night and day as needed and tolerated . -Chronic- at goal: X -Chronic- progressive: -Acute NEW DX: DATA: Labs/Tests reviewed. GOAL: Maintain/improve stability. PLAN: Continue current monitoring. Has Cock up splint, Discussed Voltaren---much better now since started OT . 9. Cerumen impaction STATUS: [X= specifies status] Previous visit: Use OTC Debrox and if cannot irrigate at home will call for an appt. Dropps did not work -Chronic- at goal: X -Chronic- progressive: -Acute NEW DX: DATA: Labs/Tests reviewed. GOAL: Maintain/improve stability. PLAN: Continue current monitoring. Discussed using wax . 10. Health care maintenance PPPSV23 -- Prevnar 13- Tdap 11. 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 He has always bruised easily . -Chronic- at goal: X -Chronic- progressive: -Acute NEW DX: DATA: Labs/Tests reviewed. PLT= 121 ( > 150 is WNL) GOAL: Maintain/improve stability. PLAN: Continue current monitoring. CBC in 3-4 mos. Avoid NSAIADS . Summary: Medications: reviewed/changed/refilled _Completed Results: _Reviewed Labs: 6 mos BMP, CBC, Uric acid, (order at AWV FU) 3 mos: BMP, CBC Follow up visit: Return to clinic: _6 months E & M RTC 3 mos for AWV and FU on low PLT, Borderline Hgb, CKD Other activities completed this visit: Education provided (discussion, questions, etc) _ Discussed: _CKD and also foods that precipitate gout; Discussed taking finasteride at 5:30 instead 3 pm Coordinate care: Primary care and _ Time spent: Pre-visit planning: _ 10 Uouz-sn-nbrd visit: _ 35 Total visit time: _ 45 *does not include time for AWV or procedure if applicable Addendum by MD Tonya, Gloria Arias on May 29, 2024 15:09:14 EST Modified Ba Swallow ordered as per Sp Therapy recommendation. Discussed using Panora Oil to EAC for softening cerumen before returning to irrigate. Daughter will call to arrange when convenient. LABS now = BMP. LABS in 3 mos ( AUGUST) = CBC, BMP, Uric Acid) [facility] Immunizations Given and Recorded Vaccine Date Status Refusal Reason influenza virus vaccine, inactivated 02/05/24 [place] rded SARS COVID Vaccine Unspecified 02/05/24 Recorded Medications colchicine 0.6 mg oral tablet Start: 08/05/23 12:49:00 PM EDT, 2 tab, PO, Daily, Disp# 30 tab, Refills: 1, PRN: as needed for goutpain, Pharmacy: [facility]/pharmacy #[id number] Start Date: 08/05/23 Status: Ordered Quantity: 30.0 Unit: tab Repeat number: 2 Indication: Unilateral primary osteoarthritis, left hip finasteride 5 mg oral tablet Start: 05/29/24 1:50:00 PM EST, 1 tab, PO, Daily, Disp# 90 tab, Refills: 4, Pharmacy: [facility] Start Date: 05/29/24 Status: Ordered Quantity: 90.0 Unit: tab Repeat number: 5 simvastatin 20 mg oral tablet Start: 05/29/24 1:54:00 PM EST, 1 tab, PO, qhs, Disp# 90 tab, Refills: 4, Pharmacy: [facility] Start Date: 05/29/24 Status: Ordered Quantity: 90.0 Unit: tab Repeat number: 5 Stalevo 150 oral tablet Start: 09/08/23 10:33:00 PM EDT, See Instructions, Disp# 720 tab, Refills: 3, 1 tab 7x/day (7 AM, 10 AM, 1 PM, 3 PM; 5:30 PM, 8 PM and at 2 AM), Pharmacy: [facility] Start Date: 09/08/23 Status: Ordered Quantity: 720.0 Unit: tab Repeat number: 4 tamsulosin 0.4 mg oral capsule Start: 05/29/24 1:48:00 PM EST, 1 cap, PO, Daily, Disp# 90 cap, Refills: 4, Pharmacy: [facility] Start Date: 05/29/24 Status: Ordered Quantity: 90.0 Unit: cap Repeat number: 5 Vasotec 20 mg oral tablet Start: 05/29/24 1:51:00 PM EST, 1 tab, PO, bid, Disp# 180 tab, Refills: 4, Pharmacy: [facility] Start Date: 05/29/24 Status: Ordered Quantity: 180.0 Unit: tab Repeat number: 5 Mental Status 05/29/24 Barriers to Learning one year Hearing de ficit Problem List Condition Confirmation Course Effective Dates Status Health Status Informant Left carpal tunnel syndrome Confirmed Active CKD (chronic kidney disease) Confirmed Active Babinski sign positive in left foot Confirmed Active Impaired functional mobility, balance, gait, and endurance Confirmed Active Gout Confirmed Active Hypercholesterolemia Confirmed Active Hypertension Confirmed Active Osteoarthritis of left shoulder Confirmed Active Osteoarthritis of left hip Confirmed Active Parkinson disease Confirmed Active Osteoarthritis, knee Confirmed Active Diagnosis Diagnosis Type Effective Dates Health Status Clinical Service Informant Cerumen impaction Discharge Diagnosis 05/29/24 Non-Specifie d CKD (chronic kidney disease) Discharge Diagnosis 05/29/24 Non-Specifie d Hypercholesterolemia Discharge Diagnosis 05/29/24 Non-Specifie d Osteoarthritis of left hip Discharge Diagnosis 05/29/24 Non-Specifie d Impaired functional mobility, balance, gait, and endurance Discharge Diagnosis 05/29/24 Non-Specifie d Left carpal tunnel syndrome Discharge Diagnosis 05/29/24 Non-Specifie d Gout Discharge Diagnosis 05/29/24 Non-Specifie d Hypertension Discharge Diagnosis 05/29/24 Non-Specifie d Parkinson disease Discharge Diagnosis 05/29/24 Non-Specifie d Health care maintenance Discharge Diagnosis 05/29/24 Non-Specifie d Thrombocytopenia Discharge Diagnosis 05/29/24 Non-Specifie d Procedures Procedure Date Related Diagnosis Body Site Status Knee replacement 1 06/03/19 Comple lizeth LAPARO PARTIAL COLECTOMY 2 04/08/89 Completed Spinal decompression with discectomy 3 04/08/71 Completed unknown Completed 1right knee 2BX--> perforation and repair [id number]- Results Laboratory List Name Date Basic Metabolic Panel (BASIC METAB PANEL ) 05/29/24 Most recent to oldest [Reference Range]: 1 eGFR CKD-EPI [>60 mL/min/1.73 m2] 66 mL/ min/1.73 m2 (05/29/24 3:08 PM) Estimated CrCl 42.93 mL/min (05/29/24 8:20 PM) Anion Gap [5-14 mmol/L] 10 mmol/L (05/29/24 3:08 PM) BUN [6-23 mg/dL] 23 mg/dL (05/29/24 3:08 PM) Ca [8.4-10.2 mg/dL] 8.9 mg/dL (05/29/24 3:08 PM) Cl- [98-107 mmol/L] 109 mmol/L *HI* (05/29/24 3:08 PM) HCO3 [22-29 mmol/L] 24 mmol/L (05/29/24 3:08 PM) Cret [0.70-1.30 mg/dL] 1.07 mg/dL (05/29/24 3:08 PM) Glu [74-109 mg/dL] 94 mg/dL 1 (05/29/24 3:08 PM) K [3.5-5.1 mmol/L] 5.0 mmol/L (05/29/24 3:08 PM) Na [136-145 mmol/L] 143 mmol/L (05/29/24 3:08 PM) 1Result Comment: ADA recommendation for FASTING Serum/Plasma Glucose: Normal: 70-100 mg/dL Prediabetes: 100-125 mg/dL Diabetes: 126 mg/dL or higher Vital Signs Most recent to oldest [Reference Range]: 1 Respiratory Rate 18 br/min (05/29/24 1:36 PM) Social History Social History Type Response Tobacco Former smoker, Smoke less tobacco use: cigars for 3-4 years and Pipe- x 1-2 year. Quit 1967. Cigars Smoking Status Never smoked cigaret fallon Sex Male Sex Representation Male (finding) FCM Outpt Note * MD Tonya, Melvin Arias: PERFORM Event Display: FCM Outpt Note Authored Date: [id number] Chief Complaint F/U Med check History of Present Illness Most recent visit with Dr. Castaneda: 02/21/24 * This patient is followed longitudinally for chronic serious medical problems by Dr. Sonny Castaneda and colleagues. CC: FU on established problems (status = chronic): CKD, Hyperlipidemia, HTN, YIN, Parkinson's Address new problems (status = acute): He is in OT and Sp Tx due to Parkinsons Review of Systems Constitutional: No fever, No chills, No fatigue. Respiratory: No shortness of breath, No cough, No wheezing. Cardiovascular: No chest pain, No palpitations. Gastrointestinal: No nausea, No vomiting, No diarrhea, No abdominal pain. Neurologic: No numbness, No tingling, No headache. Physical Exam Vitals & Measurements RR: 18 PHQ2 Data (Data Documented on:05/29/2024 13:36) Emotional health assessment NEGATIVE General: Alert and oriented, No acute distress. Neck: Supple, Non-tender, No jugular venous distention, No lymphadenopathy, No thyromegaly. Respiratory: Lungs are clear to auscultation, Respirations are non-labored, Breath sounds are equal. Cardiovascular: Normal rate, Regular rhythm, No murmur, rubs or gallops. Gastrointestinal: Soft, Non-tender, Non-distended, Normal bowel sounds. Neurologic: Alert, Oriented, No focal deficits. Psychiatric: Cooperative, Appropriate mood & affect. Assessment/Plan 1. CKD (chronic kidney disease) STATUS: [X= specifies status] Previous visit: Assess current status with CMP -Chronic- NOT at goal: X -Chronic- progressive: -Acute NEW DX: DATA: Labs/Tests reviewed. GFR= 45 GOAL: Maintain/improve stability. PLAN: Continue current monitoring. BMP now and in 3 mos. Consider Nephrology if CKD progresses. . CKD Staging Stg 1 GFR >= 90 (NORMAL) Stg 2 GFR 60-89 (MILD) Stg 3a GFR 45-59 (MILD-MOD) Stg 3b GFR= 30-44 (MOD-SEVERE) Stg 4 GFR = 15-29 (SEVERE) Stg 5 GFR = <15 (RENAL FAILURE) 2. Gout STATUS: [X= specifies status] Previous visit: Last flare up 1 month after hit toe. He uses Colchicine PRN -Chronic- NOt at goal: X -Chronic- progressive: -Acute NEW DX: DATA: Labs/Tests reviewed. Uric acid+ GOAL: Maintain/improve stability. PLAN: Continue current monitoring. High-Purine Foods: Organ meats (liver, kidney, sweetbreads) Red meat (beef, barber, pork) Seafood (shellfish, tuna, sardines) Yeast extract (Marmite, Vegemite) Processed meats (hot dogs, sausages) Other Foods That May Trigger Gout: Alcohol (especially beer and hard liquor) Sugary drinks and foods Fructose (found in fruits, juices, and processed foods) Certain vegetables (e.g., asparagus, spinach) . 3. Hypercholesterolemia STATUS: [X= specifies status] Previous visit: He runs elevated lipids but has been controlled onSimvastatin 20 mg daily. -Chronic- at goal: X -Chronic- progressive: -Acute NEW DX: DATA: Labs/Tests reviewed. GOAL: Maintain/improve stability. LDL= 68; HDL = 39 PLAN: Continue current monitoring. LIPIDS in FEB 2025 . 4. Hypertension STATUS: [X= specifies status] Previous visit: BP at home runs 120-130 / 60-70 Week 1: Move the enalapril PM dose to bedtime (8pm) instead of 5:30 Week 2: Move the Norvasc 5 mg to 8 pm from 5:30 to get most BP meds to bedtime Week 3: Move Flomax from 3 pm to 9:30 am -Chronic- at goal: X -Chronic- progressive: -Acute NEW DX: DATA: Labs/Tests reviewed. BP= 118/68 today and at home 118-125/ 70 GOAL: Maintain/improve stability. PLAN: Continue current monitoring. Due to low BP he went off the Norvasc. Flow with Flomax =slightly better. IN future if the GFR is dropping could recude the Vasotec and resume Norvasc 5mg . . 5. Osteoarthritis of left hip STATUS: [X= specifies status] Previous visit: Hx of diffuse OA knees, hip, hands. No meds. 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 Overall an ongoing issue with OA. He does have Voltaren to use prn---infrequently -Chronic- at goal: X -Chronic- progressive: -Acute NEW DX: DATA: Labs/Tests reviewed. GOAL: Maintain/improve stability. PLAN: Continue current monitoring. Dicussed using the VOltaren gel . 6. Impaired functional mobility, balance, gait, and endurance STATUS: [X= specifies status] Previous visit: HX Parkinson's x 2003. Sees Dr. Pearson Q 6 mos . Manages on 7 x a day Stelevo ---works well -Chronic- at goal: X -Chronic- progressive: -Acute NEW DX: DATA: Labs/Tests reviewed. GOAL: Maintain/improve stability. PLAN: Continue current monitoring. FU NEURO or PA-C Q 6 mos . 7. Parkinson disease STATUS: [X= specifies status] Previous visit: HX Parkinsons x 2003. Sees Dr. Pearson Q 6 mos . Manages on 7 x a day Stelevo ---works well -Chronic- at goal: X -Chronic- progressive: -Acute NEW DX: DATA: Labs/Tests reviewed. GOAL: Maintain/improve stability. PLAN: Continue current monitoring. FU NEURO Q 6 mos . 8. Left carpal tunnel syndrome STATUS: [X= specifies status] Previous visit: Use cock up splints prn night and day as needed andtolerated . -Chronic- at goal: X -Chronic- progressive: -Acute NEW DX: DATA: Labs/Tests reviewed. GOAL: Maintain/improve stability. PLAN: Continue current monitoring. Has Cock up splint, Discussed Voltaren---much better now since started OT . 9. Cerumen impaction STATUS: [X= specifies status] Previous visit: Use OTC Debrox and if cannot irrigate at home will call for an appt. Dropps did not work -Chronic- at goal: X -Chronic- progressive: -Acute NEW DX: DATA: Labs/Tests reviewed. GOAL: Maintain/improve stability. PLAN: Continue current monitoring. Discussed using wax . 10. Health care maintenance PPPSV23 -- Prevnar 13- Tdap 11. 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 He has always bruised easily . -Chronic- at goal: X -Chronic- progressive: -Acute NEW DX: DATA: Labs/Tests reviewed. PLT= 121 ( > 150 is WNL) GOAL: Maintain/improve stability. PLAN: Continue current monitoring. CBC in 3-4 mos. Avoid NSAIADS . Summary: Medications: reviewed/changed/refilled _Completed Results: _Reviewed Labs: 6 mos BMP, CBC, Uric acid, (order at AWV FU) 3 mos: BMP, CBC Follow up visit: Return to clinic: _6 months E & M RTC 3 mos for AWV and FU on low PLT, Borderline Hgb, CKD Other activities completed this visit: Education provided (discussion, questions, etc) _ Discussed: _CKD and also foods that precipitate gout; Discussed taking finasteride at 5:30 instead 3 pm Coordinate care: Primary care and _ Time spent: Pre-visit planning: _ 10 Bejv-up-pwpu visit: _ 35 Total visit time: _ 45 *does not include time for AWV or procedure if applicable Problem List/Past Medical History Ongoing Babinski sign positive in left foot CKD (chronic kidney disease) Gout Hypercholesterolemia Hypertension Impaired functional mobility, balance, gait, and endurance Left carpal tunnel syndrome Osteoarthritis of left hip Osteoarthritis of left shoulder Osteoarthritis, knee Parkinson disease Resolved CVA (cerebrovascular accident) Drug induced hallucinations Fatigue Status post right knee replacement Procedure/Surgical History •Knee replacement| Service Date: 06/03/2019•LAPARO PARTIAL COLECTOMY| Service Date: 04/08/1989•Spinal decompression with discectomy| Service Date: 04/08/1971•unknown Medications carbidopa/entacapone/levodopa(Stalevo 150 oral tablet), See Instructions, 3 refills colchicine(colchicine 0.6 mg oral tablet), 1.2 mg= 2 tab, PO, Daily, PRN, 1 refills enalapril(Vasotec 20 mg oral tablet), 20 mg= 1 tab, PO, bid, 4 refills finasteride(finasteride 5 mg oral tablet), 5 mg= 1 tab, PO, Daily, 4 refills simvastatin(simvastatin 20 mg oral tablet), 20 mg= 1 tab, PO, qhs, 4 refills tamsulosin(tamsulosin 0.4 mg oral capsule), 0.4 mg= 1 cap, PO, Daily, 4 refills Allergies NKA Social History Smoking Status Never smoked cigarettes Alcohol Use:Current Type:None Employment/School Status:Retired - Comments: also works asa teacher of history [employer] Exercise Duration (average number of minutes):180 Times per week:5-6 times/week Self assessment:Fair condition Exercise type:Walking, therpabans Home/Environment Lives with:[facility] -- Alcohol abuse in household:No Substance abuse in household:No Smoker in household:No Injuries/Abuse/Neglect in household:No Agencies notified:DAught visits him daily Family/Friends available to help:Yes Financial concerns:No Nutrition/Health Type of diet:Regular Substance Abuse - No Risk Tobacco Use:Former smoker Smokeless tobacco use:cigars for 3-4 years and Pipe- x 1-2 year. Quit 1968 Type:Cigars Intake (IView) Smoking History Cigarette smoker: Never smoked cigarettes Tobacco Product Use: Never used other tobacco products SHX E-Cigarette Use: Never Family History Alive and well: Sister, Daughter, Daughter, Daughter, Daughter, Daughter and Daughter. Hypertension: Mother. Health Status Family Member(s) Family Member(s) Relationship: Mother, Name: , Age: 89 Years, Cause: Non hodgkins Lymphoma Relationship: Father, Name: , Age: Unknown, Cause: 90 [place] Relationship: Sister, Name: , Age: 60 Years, Cause: mesothelioma Immunizations Vaccine Date Status influenza virus vaccine, inactivated 02/05/2024 Recorded SARS COVID Vaccine Unspecified 02/05/2024 Recorded Recommendations Health Maintenance Pending (in the next year) OverDue Falls Plan of Care due 06/03/20 and every 1 year Due Adult COVID-19 Vaccination due 05/29/24 Unknown Frequency Adult Social Determinants of Health Screening due 05/29/24 Unknown Frequency Adult Tdap/Td Vaccine due 05/29/24 Unknown Frequency Medicare Annual Wellness Visit due 05/29/24 and every 1 year Pneumococcal Vaccine Older Adults due 05/29/24 One-time only Shingles Vaccine due 05/29/24 One-time only Due In Future Adult Influenza Vaccine not due until 10/06/24 and every 1 year Body Mass Index not due until 02/21/25 and every 366 day Satisfied (in the past 1 year) Satisfied Adult Influenza Vaccine on 02/05/24. Satisfied by MD Tonya, Melvin Arisa Body Mass Index on 02/21/24. Satisfied by NICOLAS Mederos [place] Lipid Screening on 02/25/24. Satisfied by Contributor_system, Levels Beyond Electronic Signature on File Electronically Reviewed/Signed by: Melvin Castaneda MD Author Signature Dt/Tm:05/29/2024 03:00 PM Department of Family Medicine [facility] * MD Tonya, Melvin Arias: PERFORM Event Display: FCM Outpt Note Authored Date: Modified Ba Swallow ordered as per Sp Therapy recommendation. Discussed using Panora Oil to EAC for softening cerumen before returning to irrigate. Daughter will call to arrange when convenient. LABS now = BMP. LABS in 3 mos ( AUGUST) = CBC, BMP, Uric Acid) [facility] Electronic Signature on File Electronically Reviewed/Signed by: Melvin Csataneda MD Author Signature Dt/Tm:05/29/2024 03:11 PM Department of Family Medicine [facility] Patient Care team information Care Team Personnel Name: MD Londono Wayne L Position: Referring Member Role: Primary Care Provider Address: [address] [place] [address] Telecom: [phone] Care Team Related Persons Name: ANGI ALEMAN Name: JAVIER ALEMAN Insurance Providers Guarantor name: LINA MARROQUIN Health Plan Information #: 1 Payer: MEDICARE Member Number: [id number] Policy Number: NA Group Number: NA Health Plan Information #: 2 Payer: [facility] Member Number: [id number] Policy Number: NA Group Number: NA"
[2024-08-10] MEDS ORDERED: ACETAMINOPHEN 10MG/ML Custom 1,000 MG in EMPTY BAG 0 ML IV PRN (18:10)
[2024-08-10] MEDS: FAMOTIDINE 20MG IV PUSH 20 MG/5 ML SYR IV ONE (20:11)
[2024-08-10] MEDS: LACTATED RINGER'S 1,000 ML IV SCH (20:12)
[2024-08-10] MEDS: ENALAPRILAT 1.25 MG in DEXTROSE 5% 25 ML IV SCH (20:12)
[2024-08-10] MEDS: ENTACAPONE 200 MG TAB PO SCH ×2 (21:02→21:40)
[2024-08-10] MEDS: CARBIDOPA/LEVODOPA 25/100MG TAB PO SCH ×2 (21:02→21:39)
[2024-08-11] MEDS: hydrALAZINE HCL 20 MG/ML VIAL IV PRN (03:59)
--- NOTE | 2024-08-11 04:38 | Electrocardiogram Report ---
Test Reason : Blood Pressure : */* mmHG Vent. Rate : 60 BPM Atrial Rate : 60 BPM P-R Int : 274 ms QRS Dur : 72 ms QT Int : 410 ms P-R-T Axes : * -14 7 degrees QTcB Int : 410 ms Sinus rhythm with 1st degree A-V block Otherwise normal ECG When compared with ECG of 13-Oct-2021 16:34, No significant change was found Confirmed by Samuel Valles ([id number]) on 08/11/2024 4:37:55 AM Referred By: Confirmed By: Samuel Valles
[2024-08-11] MEDS: ONDANSETRON INJ 2 MG/ML 2 ML VIAL IV PRN (04:55)
[2024-08-11] MEDS: FAMOTIDINE 20MG IV PUSH 20 MG/5 ML SYR IV SCH (05:48)
[2024-08-11] MEDS: RASAGILINE MESYLATE 1 MG TAB PO SCH (06:44)
--- NOTE | 2024-08-11 07:38 | Hospitalist Progress Note ---
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 Patient suffers from Parkinson's disease, hypertension, BPH. He wishes avoid or limit opiate medications as he also has significant constipation #Pancreatitis patient will be advanced to clear liquids. use of Toradol and Tylenol for pain. May benefit from following up with GI medicine as an outpatient for his IPMN. persistent epigastric component continue pepcid iv #Hypertension patient's medications will be restarted #Parkinson disease patient will continue his Parkinson's meds with a small sip of water #BPH patient has his prostate medications resumed 08/11/24 scd for dvt prevention given low platelet count Admission and Anticipated Discharge Date Admission Date: August 10, 2024 Subjective pt is feeling some better still with epigastric pain, able to tolerate chips/sips will advance to clears Physical Exam Physical Exam: pt is awake and alert some epigastric pain Results & Data Results & Data Vital Signs (Past 12 Hours) Vital Signs Temp Pulse Pulse Pulse Resp BP BP 08/11/24 07:28 97.3 F L 84 18 171/85 H 08/11/24 03:57 70 20 189/98 H 08/10/24 22:50 08/10/24 22:27 97.5 F L 53 L 16 173/82 H 08/10/24 22:09 62 23 177/93 H 08/10/24 21:00 58 L 25 H 162/93 H Pulse Ox O2 Del Method 08/11/24 07:28 96 Room Air 08/11/24 03:57 96 Room Air 08/10/24 22:50 Room Air 08/10/24 22:27 97 Room Air 08/10/24 22:09 97 Room Air 08/10/24 21:00 99 Room Air Laboratory Results review chem 7 review lipase PG Care Time/CCT Total # of Minutes Spent Total Time Spent with Patient: Total time spent is greater than 50% in coordination of care (as documented) at patient's floor/unit and/or counseling patient: Coding Level of Care Code 27160 SUB INP/OBS CARE 2/35MIN Diagnoses Acute on chronic pancreatitis K85.90; K86.1 Parkinson disease G20 HTN (hypertension) I10 BPH (benign prostatic hyperplasia) N40.0
[2024-08-11 08:04] LABS: Anion Gap 6 (3-11); BUN Creatinine Ratio 17.3 (10-20); Blood Urea Nitrogen 13 mg/dl (6-23); Calcium 8.7 mg/dl (8.6-10.3); Carbon Dioxide 26 mmol/L (21-32); Chloride 105 mmol/L (98-107); Creatinine Clr Calc Pharmacy 62.4 ml/min; Glucose 85 mg/dl (70-99(Fasting)); Potassium 4.3 mmol/L (3.5-5.1); Sodium 137 mmol/L (136-145)
[2024-08-11 08:05] LABS: Alanine Aminotransferase < 3 U/L (7-52); Albumin Globulin Ratio 1.2 (0.9-2); Albumin Level 3.8 gm/dl (3.4-5.0); Alkaline Phosphatase 69 U/L (34-104); Aspartate Aminotransferase 11 U/L (13-39); Bilirubin,Total 0.9 mg/dl (0.2-1.0); Globulin 3.1 gm/dl (2.5-4.0); Lipase 245 U/L (11-82); Total Protein 6.9 gm/dl (6.0-8.3)
[2024-08-11] MEDS: FINASTERIDE 5 MG TAB PO SCH (11:35)
[2024-08-11] MEDS: ACETAMINOPHEN 1,000 MG/100 ML VIAL IV PRN (12:18)
[2024-08-11] MEDS: POLYETHYLENE (MIRALAX) 17 GM PACK PO SCH (14:15)
[2024-08-11] MEDS: TAMSULOSIN HCL 0.4 MG CAP PO SCH (19:54)
[2024-08-11] MEDS: ENALAPRIL MALEATE 10 MG TAB PO SCH (19:54)
[2024-08-12 06:17] LABS: Albumin Globulin Ratio 1.3 (0.9-2); Albumin Level 3.8 gm/dl (3.4-5.0); Bilirubin,Total 0.7 mg/dl (0.2-1.0); Calcium 8.9 mg/dl (8.6-10.3); Creatinine Clr Calc Pharmacy 46.8 ml/min; Globulin 2.9 gm/dl (2.5-4.0); Potassium 4.5 mmol/L (3.5-5.1); Total Protein 6.7 gm/dl (6.0-8.3)
[2024-08-12 07:53] VITALS: RESP 16
--- NOTE | 2024-08-12 11:37 | Hospitalist Progress Note ---
Date of Service August 12, 2024 Assessment & Plan (1) Acute on chronic pancreatitis: (2) Parkinson disease: (3) HTN (hypertension): (4) BPH (benign prostatic hyperplasia): Plan 89-year-old male who presented with chest pain found to have acute on chronic pancreatitis with possible IPMN seen on imaging. Patient suffers from Parkinson's disease, hypertension, BPH. He wishes avoid or limit opiate medications as he also has significant constipation #Pancreatitis Patient diet advanced to clear liquids on 08/11 Advance to full liquids on 08/12 (and potentially low-fat diet evening of 08/12) Toradol and Tylenol for pain; although patient reports much improved on 08/12 May benefit from following up with GI medicine as an outpatient for his IPMN Persistent epigastric component continue IV Pepcid Unclear etiology (no history of alcohol use, no history of gallbladder issues); a.m. triglycerides #Hypertension Pt's medications will be restarted Patient's blood pressure has been running high in the hospital (171/91 on 08/12) #Parkinson disease Patient will continue his Parkinson's meds with a small sip of water #BPH Patient has his prostate medications resumed 08/11/24 Disposition: Continued stay on MedSurg; hopeful discharge on 08/13 if tolerating low-fat diet DVT PPx: SCDs given low platelet count Admission and Anticipated Discharge Date Admission Date: August 10, 2024 Subjective Mr. Glez is resting peacefully in his chair this morning. He reports that he has 0/10 epigastric pain this morning. He reports that he slept well and overall he is feeling much better than when he came in. His last bowel movement was yesterday; soft in consistency. He also reports that he has an appetite, and is hoping to advance his diet again today. No changes in urinary/bowel habits; no blood in the urine or stool. No fevers overnight. ROS: Patient denies fever, chills, night sweats, headache, chest pain, SOB, pleuritic CP, cough abdominal pains, epigastric pain, lower back pain, rashes or bruising on the abdomen or flanks, nausea, vomiting, diarrhea, or changes in urinary bowel habits. Addendum: Updated daughter (Danita) at bedside. Explained that, while the patient's lipase is downtrending, there is still concern for rebound, and it is best to be conservative with patient's diet advancement. Get updates regarding labs, imaging, and hospitalization status; hopeful discharge on 08/13. Did recommend follow-up with gastroenterology outpatient upon discharge. Review of Systems Review of Systems: See HPI above Physical Exam Physical Exam: General: no acute distress; pleasant affect; daughter at bedside; non-toxic appearing; frail appearing; cooperative; SpO2 96% on RA HEENT: normocephalic, atraumatic; no scleral icterus; PERRLA w/ EOMs intact; vision and hearing grossly intact Neck: supple; no lymphadenopathy; trachea midline Skin: warm, dry without signs of tenting; no cyanosis; no rashes, bruising, lesions, or erythema noted CV: chest wall NTP; RRR; S1/S2 normal; no murmurs/rubs/gallops; pulses intact and symmetric at radial, DP, and PT Lungs: no acute respiratory distress; symmetrical chest wall expansion; clear breath sounds across all lung jiang w/o adventitious sounds; no wheezing ABD: Soft, NTP in all 4 quadrants; BS present; no rebound/guarding; no distention MSK: tics or fasciculations appreciated while sitting upright in bed; no edema noted in the LEs b/l, nonerythematous Neuro: A&Ox3; normal mood and affect; fluent speech; no focal deficits; sensation intact and symmetric in lower extremity bilaterally Results & Data Results & Data Vital Signs (Past 12 Hours) Vital Signs Temp Pulse Resp BP Pulse Ox O2 Del Method 08/12/24 07:24 36.3 C L 67 16 171/91 H 96 Room Air PG Care Time/CCT Total # of Minutes Spent Total Time Spent with Patient: Total time spent is greater than 50% in coordination of care (as documented) at patient's floor/unit and/or counseling patient: [place] [address] SUB INP/OBS CARE 2/35MIN Patient Type Established History Comprehensive Exam Comprehensive Medical Decision Making Moderate Complexity Diagnoses Acute on chronic pancreatitis K85.90; K86.1 Parkinson disease G20 HTN (hypertension) I10 BPH (benign prostatic hyperplasia) N40.0
[2024-08-13 07:39] VITALS: BP 144/70; TEMP 97; O2SAT 93
[2024-08-13 08:17] LABS: Anion Gap 6 (3-11); BUN Creatinine Ratio 19.2 (10-20); Blood Urea Nitrogen 20 mg/dl (6-23); Calcium 8.4 mg/dl (8.6-10.3); Carbon Dioxide 25 mmol/L (21-32); Chloride 107 mmol/L (98-107); Glucose 98 mg/dl (70-99(Fasting)); Potassium 4.2 mmol/L (3.5-5.1); Sodium 138 mmol/L (136-145)
[2024-08-13 08:18] LABS: Alanine Aminotransferase < 3 U/L (7-52); Albumin Globulin Ratio 1.2 (0.9-2); Albumin Level 3.6 gm/dl (3.4-5.0); Alkaline Phosphatase 63 U/L (34-104); Aspartate Aminotransferase 10 U/L (13-39); Bilirubin,Total 0.6 mg/dl (0.2-1.0); Globulin 2.9 gm/dl (2.5-4.0); Lipase 16 U/L (11-82); Total Protein 6.5 gm/dl (6.0-8.3); Triglycerides 89 mg/dl (0-150)
[2024-08-13 12:30] LABS: Appearance Urine Cloudy (Clear); Bacteria Urine Automated 2+ (None Seen); Bilirubin Urine 1+ (Negative); Blood Urine 3+ (Negative); Cast Urine Automated 0-2 /lpf (0-2); Color Urine Dark Yellow; Epithelial Cell Urine Auto 0-2 /hpf (0-2); Glucose Urine UA Negative (Negative); Ketones Urine Trace (Negative); Leukocyte Esterase Urine 1+ (Negative); Nitrite Urine Positive (Negative); Protein Urine 1+ (Negative); RBC Urine Automated >20 /hpf (0-2); Specific Gravity Urine 1.017 (1.000-1.030); Urobilinogen Urine Negative (Negative); WBC Urine Automated 21-50 /hpf (0-5)
--- NOTE | 2024-08-13 14:01 | Discharge Summary ---
Discharge Summary Date of Service August 13, 2024 Principal Dx & Hospital Course #1 = Principal Diagnosis (1) Acute on chronic pancreatitis: (2) Parkinson disease: (3) HTN (hypertension): (4) BPH (benign prostatic hyperplasia): Plan 89-year-old male who presented with chest pain found to have acute on chronic pancreatitis with possible IPMN seen on imaging. Patient suffers from Parkinson's disease, hypertension, BPH. He wishes avoid or limit opiate medications as he also has significant constipation. Day of discharge 08/13: Mr. Glez reports he is doing well this morning. He slept well last n ight, and reports he does not have any epigastric pain or back pain at this time. He did develop some bloating after he had lunch yesterday (full liquid diet), however, when he went to the bathroom, he was able to pass some gas and felt better. He then had a BM this morning, and has not had recurrence of GI discomfort. He tolerated his low-fat dinner well last night (chicken and mashed potatoes). No fevers overnight. His only new concern is that he had a "pink" streak of the urine this morning, and is concerned that might be blood in his urine. No burning with urination, dysuria, lower back pain, or blood in the stool. ROS: Patient endorses "pink streak in his urine. Patient denies fever, chills, night sweats, dizziness/lightheadedness with standing and movements, headache, chest pain, chest palpitations, SOB, abdominal pain, N/V/D, lower back pain, burning with urination, dysuria, melena, saddle anesthesia, blood in the stool, or numbness or tingling of the legs. #Pancreatitis Patient diet advanced to clear liquids on 08/11 Advance to low-fat diet the evening of 08/12, and reports he tolerated it well on 08/13 Lipase trend 680 -> 245 -> 44 -> 16 Toradol and Tylenol for pain; although patient reports much improved on 08/12 Persistent epigastric component continue p.o. Pepcid Unclear etiology (no history of alcohol use, no history of gallbladder issues); triglycerides WNL Reach out to CM for follow-up GI appointment given patient's IPMN #Hematuria Patient reports that he developed a "pink streak" in his urine on 08/13 UA revealed 3+ blood and 2+ bacteria in the urine Patient denies burning with urination, dysuria, or lower back pain Given new onset of painless hematuria, the diagnosis of exclusion is bladder/prostate CA It is also possible that this is an emerging UTI and symptoms have not mounted yet D/c on cefdinir BID x 5 days Follow-up UA in one week for resolution of hematuria #Hypertension Pt's antihypertensive medications restarted #Parkinson disease Continue Parkinson's meds #BPH Patient has his prostate medications resumed 08/11/24 Disposition: Discharge home Admission HPI Per Admitting Provider Patient is an 89-year-old male presenting with chest pain. Patient reports that he has been having pain across his upper chest "from 1 breast to the other" for the last 2 to 3 days. States that pain has been constant since onset. He does state he took 1000 mg of Tylenol at his facility and that seemed to ease the pain slightly. However, the pain has persisted. He denies any shortness of breath, nausea or vomiting with the pain. He denies any history of cardiac stents. Denies any recent fevers. Denies any abdominal pain, nausea or vomiting. Denies any DVT or PE history. Denies any history of cardiac stents. He is not on any anticoagulation or antiplatelet therapy Initial troponin was negative, EKG shows sinus rhythm with first-degree block no acute current of injury or infarct. Elevated lipase on serology with confirmat ion acute on chronic pancreatitis with possible IPMN seen on CT scan Patient admitted for pancreatitis Admission Exam Per Admitting Provider The patient appeared well nourished and normally developed. Vital signs as documented. Head exam is normocephalic atraumatic Neck is without JVD, thyromegaly, or carotid bruits. Lungs are clear to auscultation, no focal loss of breath sounds Cardiac exam, Rhythm is regular.. No murmurs, rubs or gallops. Abdominal exam reveals normal bowel sounds, soft reproducible epigstric tenderness Extremities are nonedematous and both pedal pulses are present Neurologic exam is alert and oriented, no focal loss of strength or sensation has movement disorder consistent with parkinsons disease Skin is without bruises or rashes Psychologically is without concerns for anxiety or depression. Discharge Exam General: no acute distress; pleasant affect; daughter at bedside; non-toxic appearing; frail appearing; cooperative; SpO2 96% on RA HEENT: normocephalic, atraumatic; no scleral icterus; PERRLA w/ EOMs intact; vision and hearing grossly intact Neck: supple; no lymphadenopathy; trachea midline Skin: warm, dry without signs of tenting; no cyanosis; no rashes, bruising, lesions, or erythema noted CV: chest wall NTP; RRR; S1/S2 normal; no murmurs/rubs/gallops; pulses intact and symmetric at radial, DP, and PT Lungs: no acute respiratory distress; symmetrical chest wall expansion; clear breath sounds across all lung jiang w/o adventitious sounds; no wheezing ABD: Soft, NTP in all 4 quadrants; BS present; no rebound/guarding; no distention MSK: tics or fasciculations appreciated while sitting upright in bed; no edema noted in the LEs b/l, nonerythematous Neuro: A&Ox3; normal mood and affect; fluent speech; no focal deficits; sensation intact and symmetric in lower extremity bilaterally Discharge Plan Discharge Items Patient Disposition: Home - Self-Care Reason For Visit: ACUTE ON CHRONIC PANCREATITIS Discharge Diagnosis: Acute pancreatitis Condition on Discharge: Fair Activity: As commented below Activity Comment: Gradually increase activity as tolerated Non-emergency contact: Primary Care Provider Call non-emergency contact if: you have any medication questions, your symptoms worsen, your pain is concerning for you and you have a fever Follow-up/Referrals: Melvin Castaneda [Primary Care Provider] - 08/21/24 1:25 pm Diet: Low Fat Addtl Attending Provider Instructions: You were hospitalized from 08/10 to 08/13 at [facility] for epigastric pain. An image of your abdomen/pelvis on arrival revealed acute pancreatitis, which is inflammation of the pancreas. The primary treatment for pancreatitis is bowel rest and aggressive IV fluids and pain control, which were provided during her hospitalization. Your lipase level (which is an enzyme that is released by the pancreas) was elevated on arrival at 680, but is currently within normal limits at 14 at time of discharge. Given resolution of your epigastric pain, and advancement of your diet without any rebound symptoms, it is felt that you are safe to return home. It is informed that you maintain a low-fat diet moving forward. A handout has been provided at time of discharge that outlines which foods to eat and avoid. We are also discharging you on famotidine (Pepcid) 20 mg to be taken once daily as needed for GI symptoms/discomfort. We also recommend you follow-up with a histologist technologist, as a cystic lesion was noted on the head of your pancreas that may represent IPMN, requiring further workup. Additionally, on day of discharge, you mentioned that you are having "pink- tinged" urine. A urinalysis revealed both bacteria and blood in your urine. At this time, you do not have any urinary symptoms such as burning with urination, lower back pain, or pain with urination. This may represent an early urinary tract infection that has not yet mounted a response, however other potential diagnoses such as bladder or prostate cancer are within our differential. For this reason, it is recommended that you obtain a repeat urinalysis in one week's time and follow-up closely with your PCP. He will also be discharged on an antibiotic, called cefdinir, which you should take twice daily for 5 days. If you develop any new or worsening symptoms, such as severe epigastric pain, intractable nausea/vomiting, fever, chest pain, pain with urination or defecation, or trouble breathing, please return to the emergency department medially. It was a pleasure taking care of you. Please reach out with any questions or concerns. Sincerely, The hospital medicine team at [facility] Pending Studies at Discharge: No Stand-Alone Forms: My [facility] Medications and DC Order Prescriptions: New famotidine 20 mg Tablet 20 mg PO DAILY PRN (Reason: GI Upset) Qty: 30 0RF Rx Instructions: Take 1 tablet by mouth daily as needed for GI discomfort cefdinir 300 mg capsule 300 mg PO BID 5 Days Qty: 10 0RF Rx Instructions: Take 1 tablet by mouth twice daily x 5 days Continued polyethylene glycol 3350 [Miralax] 17 gram powder in packet 17 g PO DAILY tamsulosin [Flomax] 0.4 mg Capsule 0.4 mg PO PM finasteride 5 mg Tablet 5 mg PO QAM enalapril maleate 20 mg Tablet 20 mg PO BID simvastatin 20 mg Tablet 20 mg PO DAILY [id number] 37.5-150-200 mg Tablet 1 tab PO 6XD Rx Instructions: @0700AM/0930AM/1200PM/300PM/530PM/800 rasagiline [Azilect] 1 mg tablet 1 mg PO QAM Rx Instructions: @0700 AM Discharge Orders: Discharge Order (Routine); Ordered 08/13/24 Ordered By: Terry Steiner/Other Patient Handouts: Pancreatitis Acute Dc, ED Diet, Low Fat Admission Data Admit Date/Time: 08/10/24 16:05 Attending Provider: Anival Howard Admit Provider: Gonsalo Romero Primary Care Provider: Melvin Castaneda Other Providers: Gonsalo Romero; [facility] Other Interventions: Discharge Summary Assessment (RN) Last Done: 08/13/24 15:08 Hospital Stay Data Consultations 08/10/24 15:25 ED Decision to Admit Stat Diagnostic Imagining Performed 08/10/24 13:35 CT Abd and Pelvis [CT abd pelvis IV con only] Stat Discharge Instructions Given to Patient (Per Discharging Provider) You were hospitalized from 08/10 to 08/13 at [facility] for epigastric pain. An image of your abdomen/pelvis on arrival revealed acute pancreatitis, which is inflammation of the pancreas. The primary treatment for pancreatitis is bowel rest and aggressive IV fluids and pain control, which were provided during her hospitalization. Your lipase level (which is an enzyme that is released by the pancreas) was elevated on arrival at 680, but is currently within normal limits at 14 at time of discharge. Given resolution of your epigastric pain, and advancement of your diet without any rebound symptoms, it is felt that you are safe to return home. It is informed that you maintain a low-fat diet moving forward. A handout has been provided at time of discharge that outlines which foods to eat and avoid. We are also discharging you on famotidine (Pepcid) 20 mg to be taken once daily as needed for GI symptoms/discomfort. We also recommend you follow-up with a histologist technologist, as a cystic lesion was noted on the head of your pancreas that may represent IPMN, requiring further workup. Additionally, on day of discharge, you mentioned that you are having "pink- tinged" urine. A urinalysis revealed both bacteria and blood in your urine. At this time, you do not have any urinary symptoms such as burning with urination, lower back pain, or pain with urination. This may represent an early urinary tract infection that has not yet mounted a response, however other potential diagnoses such as bladder or prostate cancer are within our differential. For this reason, it is recommended that you obtain a repeat urinalysis in one week's time and follow-up closely with your PCP. He will also be discharged on an antibiotic, called cefdinir, which you should take twice daily for 5 days. If you develop any new or worsening symptoms, such as severe epigastric pain, intractable nausea/vomiting, fever, chest pain, pain with urination or defecation, or trouble breathing, please return to the emergency department medially. It was a pleasure taking care of you. Please reach out with any questions or concerns. Sincerely, The hospital medicine team at [facility] Supervising Physician Co-Signing Physician Notes chart reviewed, case d/w P Oswaldo PAC stable for home, as above, treat hematuria as probable UTI, re eval if sx worsen or don't resolve; repeat UA ~4wks to ensure clearing of hematuria Total Time Total Time Spent Total Time Spent (In Minutes): 40 C[place] [address] INP/OBS DISCH >30 MIN Patient Type Established Medical Decision Making Moderate Complexity Diagnoses Acute on chronic pancreatitis K85.90; K86.1 Parkinson disease G20 HTN (hypertension) I10 BPH (benign prostatic hyperplasia) N40.0
[2024-08-13 15:12] VITALS: PULSE 58
[2024-08-13] MEDS ORDERED: FAMOTIDINE 20 MG TAB PO SCH (21:00)
== END 2024-08-13 15:49 | disposition home health service (06) | DRG 439 ==
LOC: SUATTDRO → ED 12:13 → EDINP 16:05 → SUATTDRO 16:05 → 3N 22:09